=== PATIENT | female | born 1965 | race Caucasian/White ===

== ENCOUNTER 2021-10-04 15:05 | Emergency (ER) | payer BC, SELFPAY ==
[2021-10-04 15:15] VITALS: BP 150/87; PULSE 76; RESP 21; TEMP 36.1; O2SAT 98
--- NOTE | 2021-10-04 15:28 | ED.URI ---
HPI - URI/Sore Throat General Chief Complaint: Upper Respiratory Infection Stated Complaint: Congestion Source: patient and RN notes reviewed Mode of arrival: ambulatory Limitations: no limitations History of Present Illness HPI Narrative: 56-year-old female presented for complaint of mild sinus congestion, dry cough, and fatigue. She endorses her was sick with similar symptoms a week ago and was treated with antibiotics, steroid, inhaler etc. She states she has family coming in and is concerned she will infect them. She took Tylenol cough and cold medicine and 2 puffs of an inhaler that she had from a year ago. She denies shortness of breath, wheezing, nausea, vomiting, diarrhea, fevers or chills. She is vaccinated and boosted for COVID and flu. MD elicited complaint: cough Related Data Allergies Allergy/AdvReac Type Severity Reaction Status Date / Time No Known Allergies Allergy Verified 08/17/16 20:54 Review of Systems Review of Systems: CONSTITUTIONAL: Denies malaise, chills, sweats, fever EYES: Denies visual changes, redness, or discharge ENT: Reports rhinorrhea, congestion, Denies sinus pain, otalgia, sore throat CARDIOVASCULAR: Denies chest pain, palpitations RESPIRATORY: Reports cough GASTROINTESTINAL: Denies abdominal pain MUSCULOSKELETAL: Denies myalgia NEUROLOGIC: Endorses headache Exam Narrative: GENERAL: Ill-appearing, nontoxic HEAD: Normocephalic EYES: conjunctivae clear ENT: Mucous membranes moist. TM pearly moss with dull light reflex bilaterally; no tragal tenderness. Oropharynx erythematous without lesions or exudate, no drooling, no hoarseness, no trismus, uvula midline. NECK: Supple. No lymphadenopathy CHEST: Clear to auscultation, breath sounds equal. No respiratory distress, speaks in full sentences. HEART: Regular rate and rhythm. No murmur heard. SKIN: Warm, dry, no rash. NEURO: Alert and oriented x3. PSYCH: Normal mood and affect Course Course Emergency Course: Patient is aware of diagnosis, understands and agrees to treatment plan. Anticipatory guidance given. Patient agrees to follow-up as directed and is aware of reasons to seek care at the emergency department. Portions of this record may have been created with voice recognition software Level of Care: Express Care Visit Vital Signs Vital signs: Vital Signs Temperature 96.9 F L 10/04/21 15:15 Pulse Rate 76 10/04/21 15:15 Respiratory Rate 21 H 10/04/21 15:15 Blood Pressure 150/87 H 10/04/21 15:15 Pulse Oximetry 98 10/04/21 15:15 Oxygen Delivery Room Air 10/04/21 15:15 Temperature 96.9 F L 10/04/21 15:15 Pulse Rate 76 10/04/21 15:15 Respiratory Rate 21 H 10/04/21 15:15 Blood Pressure 150/87 H 10/04/21 15:15 Pulse Oximetry 98 10/04/21 15:15 Oxygen Delivery Room Air 10/04/21 15:15 reviewed MDM - URI/Sore Throat MDM Narrative Medical decision making narrative: Supportive treatments advised, if sx persist or worsen she will have abx Rx if she will not be able to reach her PCP timely. New Rx albuterol inhaler provided. She is appropriate for outpatient treatment and follow-up with her PCP. Verbalizes understanding. Differential Diagnosis Differential diagnosis: Likely upper respiratory infection, sinusitis, viral infection and bronchitis Discharge Plan Discharge Clinical Impression: Bronchitis Patient Disposition: Home, Self-Care Condition: Stable Instructions: Antibiotic Form, Acute Bronchitis (ED) Additional Instructions: Recommend Flonase spray and Zyrtec (or Claritin/Sugey)For sinus congestion Take the cough medicine with codeine at night benzonatate as needed for cough inhaler as needed for shortness of breath/wheezing Tylenol 1000mg every 8 hours as needed for pain/fever Symptomatic treatment includes: rest, fluids, and increase humidity of the air at home. The antibiotic is available should your symptoms worsen/persist and you develop fever and shortness
== END 2021-10-04 15:47 | disposition home or self-care (01) ==
PROVIDERS: Emergency Provider Nurse Practitioner Family; PCP Nurse Practitioner Family
DX: J40 Bronchitis, not specified as acute or chronic (principal); I10 Essential (primary) hypertension
CPT/HCPCS: 99213; G0463

== ENCOUNTER 2023-02-08 08:49 | Emergency (ER) | payer BC, SELFPAY ==
[2023-02-08 09:03] VITALS: BP 134/79; PULSE 79; RESP 18; TEMP 36.5; O2SAT 100
--- NOTE | 2023-02-08 09:11 | ED.URI ---
HPI - URI/Sore Throat General Chief Complaint: Upper Respiratory Infection Stated Complaint: cough,headache,chest congestion Time Seen by Provider: 02/08/23 09:11 Source: patient, RN notes reviewed and old records reviewed Mode of arrival: ambulatory Limitations: no limitations History of Present Illness HPI Narrative: 57-year-old female presents to the [facility] with complaints of cough, headache, chest congestion sinus pressure for 10 days. States that she felt like she was wheezing yesterday. Has history of anxiety, ADHD. Takes medications for both Denies fevers Has taken Tylenol Severe cold and flu Related Data Home Medications Medication Instructions Recorded Confirmed bupropion HCl 300 mg 24 hr tablet, 300 mg PO DIRECTED 02/08/23 02/08/23 extended release buspirone 30 mg tablet 30 mg DIRECTED 02/08/23 02/08/23 dextroamphetamine-amphetamine 30 30 mg DIRECTED 02/08/23 02/08/23 mg tablet Allergies Allergy/AdvReac Type Severity Reaction Status Date / Time No Known Allergies Allergy Verified 08/17/16 20:54 Review of Systems Review of Systems: All systems reviewed & are unremarkable except as noted in HPI and below Constitutional: Constitutional: Reports as per HPI Eyes: Eyes: Reports no additional eye complaints ENT: Reports as per HPI Cardiovascular: Cardiovascular: Reports no additional cardiovascular complaints, Denies chest pain and Denies dyspnea Respiratory: Respiratory: Reports as per HPI, Reports chest congestion, Reports cough, Denies dyspnea and Reports wheezing Gastrointestinal: Gastrointestinal: Reports no additional gastrointestinal complaints, Denies abdominal pain, Denies nausea and Denies vomiting Musculoskeletal: Musculoskeletal: Reports no additional musculoskeletal complaints Integumentary/Breasts: Skin/Breast: Reports system reviewed and no additional complaints, except as docu Neurologic: Reports system reviewed and no additional complaints, except as documented Psychiatric: Psychiatric: Reports no additional psychiatric complaints Allergic/Immunologic: Allergic/Immunologic: Reports no additional allergic/immunologic complaints [facility] Surgical History Surgical History (Updated 02/08/23 @ 13:48 by Zara Schrader APRN) History of shoulder surgery Right History of surgical procedure on eye proper using laser Social History Social History (Updated 02/08/23 @ 13:48 by Zara Schrader APRN) Gender identity (if verbalized by the patient): Female Comments At the time of my signature, I reviewed and agree with the nursing past medical, surgical, social, and family history. There is no relevant family history pertinent to the patient complaint. Exam Const: General: cooperative, healthy appearing, comfortable, no acute distress, well developed, alert and well nourished Nutritional Appearance: well nourished and obese Orientation/consciousness: patient oriented x3 Limitations: no limitations HENMT: Head: normal to inspection Ears: hearing grossly normal bilaterally, external ears normal, TM's normal bilaterally and EAC's normal Face/Nose/Sinus: Normal external nose present, Normal nares present, Normal nasal mucous membranes and turbinates present, No nasal discharge present, normal facial exam and face symmetric Face and sinus: normal facial exam, sinuses nontender and face symmetric Mouth: Yes Normal oral and palatal mucosa present, Yes lip normal, Yes tongue normal and Yes moist mucous membranes Throat: posterior oropharynx normal, tonsils normal, uvula midline and postnasal drainage Eyes: General: appearance normal, both eyes and all related structures Alignment and Position: alignment normal Periorbital: periorbital findings normal Pupils: Equal, round and reactive pupils present EOM: EOMs intact bilaterally Neck: Neck: normal visual inspection, full ROM, no lymphadenopathy and no meningeal signs Chest: Chest palpation & inspection: normal inspection o
== END 2023-02-08 09:29 | disposition home or self-care (01) ==
PROVIDERS: Emergency Provider Nurse Practitioner; PCP Nurse Practitioner Family
DX: J40 Bronchitis, not specified as acute or chronic (principal); J01.40 Acute pansinusitis, unspecified; Z79.899 Other long term (current) drug therapy
CPT/HCPCS: 99213; G0463

== ENCOUNTER 2023-04-25 09:10 | Emergency (ER) | payer BC, SELFPAY ==
[2023-04-25 09:26] VITALS: BP 138/94; PULSE 87; RESP 16; TEMP 37.1; O2SAT 98
--- NOTE | 2023-04-25 09:34 | ED.URI ---
HPI - URI/Sore Throat General Chief Complaint: Upper Respiratory Infection Stated Complaint: fever,chills,ears/throat hurts,cough Time Seen by Provider: 04/25/23 10:05 Source: patient and RN notes reviewed Mode of arrival: ambulatory Limitations: no limitations History of Present Illness HPI Narrative: 58-year-old female presents with concern for 3 day history of fever, chills, ear pain, sore throat, cough. She reports the bladder office have been sick. She denies shortness of breath, nausea, vomiting, diarrhea MD elicited complaint: cough and sore throat Related Data Home Medications Medication Instructions Recorded Confirmed bupropion HCl 300 mg 24 hr tablet, 300 mg PO DIRECTED 02/08/23 04/25/23 extended release buspirone 30 mg tablet 30 mg DIRECTED 02/08/23 04/25/23 dextroamphetamine-amphetamine 30 30 mg DIRECTED 02/08/23 04/25/23 mg tablet Allergies Allergy/AdvReac Type Severity Reaction Status Date / Time No Known Allergies Allergy Verified 04/25/23 09:50 Review of Systems Review of Systems: CONSTITUTIONAL: Reports malaise, chills, fever. EYES: Denies visual changes, redness, or discharge. ENT: Reports otalgia and sore throat. CARDIOVASCULAR: Denies chest pain, palpitations, or edema. RESPIRATORY: Reports cough. Denies dyspnea. GASTROINTESTINAL: Denies abdominal pain, nausea, vomiting, diarrhea SKIN: Denies rash or itching. MUSCULOSKELETAL: Reports myalgia. NEUROLOGIC: Reports headache. All systems reviewed & are unremarkable except as noted in HPI and below PMFSH Surgical History Surgical History (Updated 02/08/23 @ 13:48 by Zara Schrader APRN) History of shoulder surgery Right History of surgical procedure on eye proper using laser Social History Social History (Updated 02/08/23 @ 13:48 by Zara Schrader APRN) Gender identity (if verbalized by the patient): Female Comments At time of signature, agree with nursing past medical, surgical, social and family history. There is no relevant family history pertinent to the presenting complaint Exam Narrative: GENERAL: Nontoxic-appearing, well-nourished, and in no acute distress. HEAD: Normocephalic EYES: PERRLA, conjunctivae clear ENT: Nares clear. Mucous membranes moist. TM pearly moss with dull light reflex bilaterally; no tragal tenderness. Oropharynx not erythematous without lesions. Tonsils not enlarged and without exudate, no drooling, no hoarseness, no trismus, uvula midline. NECK: Supple. No lymphadenopathy CHEST: Clear to auscultation, breath sounds equal. No wheezing, rhonchi, rales, or stridor. No respiratory distress, speaks in full sentences. HEART: Regular rate and rhythm. No murmur heard. SKIN: Warm, dry, no rash. NEURO: Alert and oriented x3. PSYCH: Normal mood and affect Course Course Emergency Course: Patient is aware of diagnosis, understands and agrees to treatment plan. Anticipatory guidance given. Patient agrees to follow-up as directed and is aware of reasons to seek care at the emergency department. Portions of this record may have been created with voice recognition software Level of Care: Express Care Visit Vital Signs Vital signs: Vital Signs Temperature 98.7 F 04/25/23 09:26 Pulse Rate 87 04/25/23 09:26 Respiratory Rate 16 04/25/23 09:26 Blood Pressure 138/94 H 04/25/23 09:26 Pulse Oximetry 98 04/25/23 09:26 Oxygen Delivery Room Air 04/25/23 09:26 Temperature 98.7 F 04/25/23 09:26 Pulse Rate 87 04/25/23 09:26 Respiratory Rate 16 04/25/23 09:26 Blood Pressure 138/94 H 04/25/23 09:26 Pulse Oximetry 98 04/25/23 09:26 Oxygen Delivery Room Air 04/25/23 09:26 Reviewed. MDM - URI/Sore Throat MDM Narrative Medical decision making narrative: Differential diagnosis considered: Davis virus, strep pharyngitis, allergic rhinitis, upper respiratory tract infection, sinusitis, rhinosinusitis, nasopharyngitis. viral pharyngitis, otitis media, o
== END 2023-04-25 10:23 | disposition home or self-care (01) ==
PROVIDERS: Emergency Provider Nurse Practitioner; PCP Nurse Practitioner Family
DX: U07.1 COVID-19 (principal); I10 Essential (primary) hypertension; F41.9 Anxiety disorder, unspecified; F32.A Depression, unspecified; F90.9 Attention-deficit hyperactivity disorder, unspecified type
CPT/HCPCS: 87426; 87804; 99213; C9803; G0463

== ENCOUNTER 2023-05-23 17:43 | Emergency (ER) | payer BC, SELFPAY ==
--- NOTE | ~2023-05-23 | XR_ITS ---
Left Knee Technique: AP, lateral, and sunrise views were obtained. Clinical History: Pain Findings: There is a large, minimally displaced avulsion fracture of the posterior tibial spine, prob ably involving the posterior cruciate ligament insertion. There is degenerative spurring at the inter condylar notch, medial joint line, and patella.. Small joint effusion is seen. Impression: Large, minimally displaced avulsion fracture of the posterior tibial spine, probably involving the po sterior cruciate ligament insertion. Mild degenerative change, as above. Reviewed, dictated and finalized at location M. ENT RELATIONS COORDINATOR Impression: Large, minimally displaced avulsion fracture of the posterior tibial spine, pro bably involving the posterior cruciate ligament insertion. Mild degenerative change, as above.
--- NOTE | ~2023-05-23 | CT_ITS ---
Noncontrast CT scan of the left knee CLINICAL HISTORY: Fracture TECHNIQUE: Axial noncontrast imaging of the left knee was performed. Sagittal and coronal reformatted images were constructed. Dose reduction technique was used on this scan by utilizing automated expos ure control and iterative reconstruction technique. The dose-length product (DLP) was 419.67 mGy-cm. Findings: There is a comminuted, minimally displaced fracture involving the posterior tibial spine re gion, involving the posterior cruciate ligament insertion. Fracture lines extend to the anterior tibi al spine as well, and involvement of the anterior cruciate ligament insertion cannot be completely ex cluded. There is moderate tricompartmental degenerative spurring. Small joint effusion present. [id number] rate Nichols's cyst present. Musculature about the knee is grossly intact. Subcutaneous soft tissues ar e otherwise unremarkable. IMPRESSION: Comminuted, minimally displaced fracture involving the posterior tibial spine, and probably extending to the anterior tibial spine as well. Fracture involves the posterior cruciate ligament insertion, a nd possibly the anterior cruciate ligament insertion. Moderate tricompartmental degenerative spurring. Small joint effusion and small to moderate Nichols's cyst. Reviewed, dictated and finalized at location . MAKER IMPRESSION: Comminuted, minimally displaced fracture involving the posterior tibial spine, and probably extending to the anterior tibial spine as well. Fracture involves the posterior cruciate ligament insertion, and possibly the anterior cruciate l igament insertion. Moderate tricompartmental degenerative spurring. Small joint effusion and small to moderate Nichols's cyst.
[2023-05-23 17:48] VITALS: BP 120/88; PULSE 93; RESP 20; TEMP 36.7; O2SAT 96
--- NOTE | 2023-05-23 18:44 | ED.LOWEXIN ---
HPI - Extremity Injury (Lower) General Chief Complaint: Extremity Injury, Lower Stated Complaint: left knee injury Time Seen by Provider: 05/23/23 17:48 History of Present Illness HPI Narrative: 58-year-old female presents here after tripping and falling landing heavily on her left knee, she states that she felt something give and has severe pain. pain radiates all way down to the foot. Related Data Home Medications Medication Instructions Recorded Confirmed bupropion HCl 300 mg 24 hr tablet, 300 mg PO DIRECTED 02/08/23 04/25/23 extended release buspirone 30 mg tablet 30 mg DIRECTED 02/08/23 04/25/23 dextroamphetamine-amphetamine 30 30 mg DIRECTED 02/08/23 04/25/23 mg tablet Allergies Allergy/AdvReac Type Severity Reaction Status Date / Time No Known Allergies Allergy Verified 05/23/23 17:51 Review of Systems Review of Systems: CONST: No fever. HEENT: No sore throat C/V: No chest pain RESP: No cough GI: No abdominal pain : No dysuria. M/S: left knee pain SKIN: bruising left knee NEURO: slight paresthesias down the leg PSYCH: [No depression] [facility] Surgical History Surgical History (Updated 02/08/23 @ 13:48 by Zara Schrader APRN) History of shoulder surgery Right History of surgical procedure on eye proper using laser Social History Social History (Updated 02/08/23 @ 13:48 by Zara Schrader APRN) Gender identity (if verbalized by the patient): Female Exam Narrative: EXAMINATION OF ORGAN SYSTEMS/BODY AREAS: Constitutional: Vital signs per nursing GENERAL: appears uncomfortable and in pain HEAD: Normal with no signs of head trauma. EYES: EOMI, conjunctiva normal ENT: Hearing grossly intact LUNGS: Nonlabored breathing. HEART: [Regular rate and rhythm] ABD: [Soft], [nontender to palpation] EXT: swelling left knee with tenderness SKIN: swelling/ bruising left knee NEURO: [Alert and oriented x 3. sensation intact left lower leg and able to wiggle toes but feels weirder/less than right] PSYCH: Normal affect Course Vital Signs Vital signs: Vital Signs Temperature 98.1 F 05/23/23 17:48 Pulse Rate 93 05/23/23 17:48 Respiratory Rate 20 05/23/23 17:48 Blood Pressure 120/88 05/23/23 17:48 Pulse Oximetry 96 05/23/23 17:48 Oxygen Delivery Room Air 05/23/23 17:48 Temperature 98.1 F 05/23/23 17:48 Pulse Rate 88 05/23/23 19:12 Respiratory Rate 20 05/23/23 17:48 Blood Pressure 129/86 05/23/23 19:12 Pulse Oximetry 97 05/23/23 19:12 Oxygen Delivery Room Air 05/23/23 17:48 Procedures Joint Aspiration/Injection Joint Asp./Inject. 1: Joint Aspiration Date: 05/23/23 Joint Aspiration Time: 20:03 Side of body: left Joint Aspirated: knee Ultrasound Guidance: No Skin Prep: other (chlorhex, alcohol, and sterile prep/drape) Local Anesthetic: lidocaine 1% Amount of anesthesia used (mL): 5 Needle Size Used: 18G Fluid Obtained: bloody Total fluid obtained (mL): 35 Patient Tolerated Procedure: well and no complications MDM - Extremity Injury (Lower) MDM Narrative Medical decision making narrative: 58-year-old female presenting here after mechanical fall with knee injury, she has good pulses left DP, there is obvious swelling/ tenderness to the left knee, with some paresthesias down the lateral leg/ foot, x-ray on my interpretation does show an acute fracture, confirmed on CT, I discussed this with ortho Dr Paul who recommended joint aspiration here and follow-up in the clinic, with knee immobilizer. Knee aspiration performed, 35 cc bloody fluid, bandaid placed, TONI wrap placed. her friend will stay with her tonight to take care of her. I do feel she is stable for discharge at this time and she is comfortable with plan, follow-up information provided as well as strict return precautions. Discharge Plan Discharge Clinical Impression: Acute
[2023-05-23] MEDS: LORazepam (*CRX) 0.5 MG TABLET PO (19:10)
[2023-05-23] MEDS: MORPHINE SULFATE (*CRX) 4 MG/ML INJ IM (19:10)
[2023-05-23 19:12] VITALS: BP 129/86; PULSE 88; O2SAT 97
[2023-05-23 20:27] VITALS: BP 145/96; PULSE 93; RESP 17; O2SAT 96
== END 2023-05-23 20:27 | disposition home or self-care (01) ==
PROVIDERS: Emergency Provider Emergency Medicine; PCP Nurse Practitioner Family
DX: M23.92 Unspecified internal derangement of left knee (principal); S82.112A Displaced fracture of left tibial spine, initial encounter for closed fracture; M25.062 Hemarthrosis, left knee; M71.22 Synovial cyst of popliteal space [Baker], left knee; W01.0XXA Fall on same level from slipping, tripping and stumbling without subsequent striking against object, initial encounter
CPT/HCPCS: 20610; 73562; 73700; 96372; 99283; 99284; A9270; J2270

== ENCOUNTER 2024-06-14 08:27 | Outpatient (CLI) | payer BC, SELFPAY ==
--- NOTE | ~2024-06-14 | MM_ITS ---
EXAMINATION: MM screening abisai BI w ernesto HISTORY: Screening TECHNIQUE: Craniocaudal and mediolateral oblique 3-D tomosynthesis images were obtained and synthetic 2-D images were generated. CAD analysis was submitted and interpreted. COMPARISON: Comparison to multiple prior studies sequentially, with oldest reviewed study dated 03/11. BREAST PARENCHYMAL COMPOSITION: Not dense: There are scattered areas of fibroglandular density. FINDINGS: There is no evidence of suspicious mass, calcification, or architectural distortion to sugg est malignancy in either breast. There has been no suspicious interval change. IMPRESSION: 1. No mammographic evidence of malignancy. 2. Recommend routine screening mammography in one year. BI-RADS Category 1: Negative Reviewed, dictated and finalized at location [] ET RISK ANALYST
--- OUTSIDE RECORDS SUMMARY | 2024-06-14 08:34 | XMS_ITS | Data Portability ---
Author Organization [facility], [employer] Address [address] [place] [address] Assessment Encounter Date Assessment Date Assessment LastModified by Organization Details LastModified Time 05/27/2023 05/27/2023 New patient presented for admission to the practice. Studies ordered as below. Discussed plan with patient and family, who expressed understanding . Follow up as noted below. [email or web address] Not available 05/27/2023 15:52:55 08/26/2023 08/26/2023 Patient presented for follow up. Studies ordered as below. Discussed plan with patient/careg iver, who expressed understanding . Follow up as noted below. New patient presented for admission to the practice. Studies ordered as below. Discussed plan with patient and family, who expressed understanding . Follow up as noted below. [email or web address] Not available 08/26/2023 16:25:04 03/15/2024 03/15/2024 Patient presented for follow up. Studies ordered as below. Discussed plan with patient/careg iver, who expressed understanding . Follow up as noted below. [email or web address] Not available 03/15/2024 16:59:41 Plan of Treatment Reminders Order Date Submit Date Provider Last Modified By Organization Details Last Modified Time Details Appointments ESTABLISH ED PATIENT 15 2024 03:45P Victorino Marshall MD Not available Not available Not available Lab hepatitis C virus Ab, serum 2023 024 NI [facility], [address], [place], [address], 05/27/2023 16:24:52 drug screen, urine 2023 024 NI [facility], [address], [place], [address], 05/27/2023 16:24:55 C-peptide , serum 2023 024 [email or web address], [address], [place], [address], 05/27/2023 16:24:51 HbA1c (hemoglob in A1c), blood 2023 024 [employer] [facility], [address], [address], [place], [address], 05/27/2023 16:24:51 glucose tolerance test, post-75G, 3 specimens 2023 024 [employer] [facility], [address], [address], [place], [address], 05/27/2023 16:24:48 lipid panel w/ direct LDL, serum 2023 024 [employer] [facility], [address], [address], [place], [address], 05/27/2023 16:24:45 CMP, serum or plasma 2023 024 [employer] [facility], [address], [address], [place], [address], 05/27/2023 16:24:52 CBC w/ auto diff 2023 024 [facility], [address], [address], [place], [address], 05/27/2023 16:24:54 TSH + free T4, serum 2023 024 [employer] [facility], [address], [address], [place], [address], 05/27/2023 16:24:47 erythrocy te sedimenta tion rate by westergre n method 2023 024 [email or web address], [address], [place], [address], 05/27/2023 16:24:53 ESR (erythroc yte sedimenta tion rate), blood 2023 024 [email or web address], [address], [place], [address], 05/27/2023 16:24:50 hepatitis C virus Ab, serum 2023 024 [email or web address], [address], [place], [address], 08/26/2023 16:37:06 HIV (1+2) Ab screen, serum 2023 024 [email or web address], [address], [place], [address], 08/26/2023 16:37:06 lipid panel w/ direct LDL, serum 2023 024 [email or web address], [address], [place], [address], 08/26/2023 16:37:05 CMP, serum or plasma 2023 024 [facility], [address], [place], [address], 09/05/2023 12:03:06 CBC w/ auto diff 2023 024 [employer] [facility], [address], [place], [address], 09/05/2023 12:03:09 drug screen, urine 2023 024 [email or web address], [address], [place], [address], 08/26/2023 16:37:06 C-peptide , serum 2023 024 [facility], [address], [place], [address], 08/26/2023 16:37:06 HbA1c (hemoglob in A1c), blood 2023 024 [facility], [address], [place], [address], 09/05/2023 12:03:04 glucose tolerance test, post-75G, 3 specimens - 2 Hours 2023 024 [facility], [address], [place], [address], 08/26/2023 16:37:05 TSH + free T4, serum 2023 024 [facility], [address], [place], [address], 08/26/2023 16:37:06 ESR (erythroc yte sedimenta tion rate), blood 2023 024 [facility], [address], [place], [address], 09/05/2023 12:03:10 CMP, serum or plasma 2023 024 [facility], [address], [place], [address], 12/07/2023 18:56:08 lipid panel w/ direct LDL, serum 2023 024 [facility], [address], [place], [address], 03/15/2024 17:40:53 TSH, serum or plasma 2023 024 [facility], [address], [place], [address], 03/15/2024 17:40:55 CMP, serum or plasma 2023 024 [email or web address], [address], [place], [address], 04/23/2024 10:35:42 CBC w/ auto diff 2023 024 [facility], [address], [place], [address], 04/23/2024 10:35:40 drug screen, urine 2023 024 [email or web address], [address], [place], [address], 03/15/2024 17:40:53 C-peptide , serum 2023 024 [facility], [address], [place], [address], 04/23/2024 10:35:45 HbA1c (hemoglob in A1c), blood 2023 024 [email or web address], [address], [place], [address], 04/23/2024 10:35:43 Referral gynecolog ist referral 2023 024 GALE José, [address], [place], [address], Ph [phone] 05/21/2024 04:02:10 psychiatr ist referral 2023 024 GALE Davis, [address], [place], [address], 05/21/2024 04:02:11 orthopedi c surgeon referral 2023 024 GALE Paul MD, [address], [place], [address], 05/21/2024 04:02:10 gastroent erologist referral 2023 024 GALE Metcalf MD, [address], [place], [address], 05/21/2024 04:02:11 gynecolog ist referral 2023 024 ATHTERRY José, [address], [place], [address], Ph [phone] 08/26/2023 16:50:21 psychiatr ist referral 2023 024 [email or web address] Keshawn Rodriguez MD, [address], [place], [address], 08/26/2023 16:45:44 gastroent erologist referral 2023 024 GALE Metcalf MD, [address], [place], [address], 09/11/2023 15:11:22 gynecolog ist referral 2023 024 [email or web address] Shilpa José, [address], [place], [address], Ph [phone] 12/07/2023 17:31:[address] referral 2023 024 [facility], [address], [place], [address], 03/15/2024 17:53:02 gynecolog ist referral 2023 024 SHILPI José, [address], [place], [address], Ph [phone] 03/15/2024 17:54:37 Procedures None recorded. Surgeries None recorded. Imaging MAMMO, screening , digital, bilateral 2023 024 [facility], [address], [place], [address], 06/03/2023 07:17:18 electroca rdiogram 2023 024 [facility], [address], [place], [address], 05/27/2023 18:02:38 home sleep study 2023 024 [facility], [address], [place], [address], 06/21/2023 10:30:46 MAMMO, screening , digital, bilateral [address] [facility], [address], [place], [address], 09/02/2023 04:13:13 MAMMO, screening , digital, bilateral [address] [facility], [address], [place], [address], 12/14/2023 04:09:42 MAMMO, screening , digital, bilateral [address] [facility], [address], [place], [address], 03/22/2024 04:13:55 Medication Orders triamcino lone acetonide 0.1 % topical cream 2023 024 [facility]2510, [address] [place], [address], 05/27/2023 16:23:37 sumatript an 50 mg tablet 2023 024 [facility] #2510, [address] [place], [address], 05/27/2023 16:23:36 sumatript an 50 mg tablet 2023 024 [facility]acy #2510, [address] [place], [address], 08/26/2023 16:36:07 bupropion HCl XL 300 mg 24 hr tablet, extended release 2023 [facility] [address] [place] [address], [address], 03/15/2024 17:27:11 dextroamp hetamine- amphetami ne 30 mg tablet 2023 024 [facility], [address] [place] [address], [address], 12/07/2023 17:26:55 Mounjaro 2.5 mg/0.5 mL subcutane ous pen injector 2023 [facility], [address] [place] [address], [address], 01/07/2024 15:43:57 Auvelity 45 mg-105 mg tablet, extended release 2023 024 [facility], [address] [place] [address], [address], 03/15/2024 17:40:09 amlodipin e 2.5 mg tablet 2023 024 [facility], [address] [place] [address], [address], 03/15/2024 17:40:10 topiramat e 25 mg tablet 2023 024 [facility] [address] [place] [address], [address], 04/07/2024 08:36:32 Patient TargetsNo targets recorded. Patient Instructions Encounter Date Encounter Id Patient Instructions Last Modified By Organization Details Last Modified Time 05/27/2023 [id number] mammogram: about this test [facility] Not available 05/27/2023 16:23:27 sleep apnea: car e instructions [facility] Not available 05/27/2023 16:23:28 attention defici t hyperactivity disorder (ADHD) in adults: care instructions [facility] Not available 05/27/2023 16:23:28 broken lower leg : care instructions mshenouda Not available 05/27/2023 16:23:29 snoring: care instructions mshenouda Not available 05/27/2023 16:23:30 body mass index: care instructions mshenouda Not available 05/27/2023 16:23:28 learning about healthy weight mshenouda Not available 05/27/2023 16:23:29 living will mshenouda Not available 05/10 16:17:22 08/26/2023 [id number] mammogram: about this test mshenouda Not available 08/26/2023 16:36:00 sleep apnea: car e instructions mshenouda Not available 08/26/2023 16:36:01 attention defici t hyperactivity disorder (ADHD) in adults: care instructions mshenouda Not available 08/26/2023 16:36:00 broken lower leg : care instructions mshenouda Not available 08/26/2023 16:36:01 body mass index: care instructions mshenouda Not available 08/26/2023 16:36:00 learning about healthy weight mshenouda Not available 08/26/2023 16:35:59 12/07/2023 [id number] mammogram: about this test mshenouda Not available 12/07/2023 17:26:51 low cholesterol diet mshenouda Not available 12/07/2023 17:26:51 body mass index: care instructions mshenouda Not available 12/07/2023 17:26:51 learning about healthy weight mshenouda Not available 12/07/2023 17:26:51 body mass index: care instructions mshenouda Not available 12/07/2023 17:26:51 learning about healthy weight mshenouda Not available 12/07/2023 17:26:51 03/15/2024 [id number] mammogram: about this test mshenouda Not available 03/15/2024 17:40:03 Preventing Depression From Coming Back: Care Instructions mshenouda Not available 03/15/2024 17:40:02 body mass index: care instructions mshenouda Not available 03/15/2024 17:40:03 learning about healthy weight mshenouda Not available 03/15/2024 17:40:03 Reason for Referral Orthopedic Surgeon Referral for Fracture of tibia Referring Physician: Jose Armando [facility], Encounter Date: 05/27/2023 Rotary Filter Operator Referral for Sc reening for malignant neoplasm of cervix Referring Physician: Jose Armando [facility], Encounter Date: 05/27/2023 Rag Shredder Referral for Screening for malignant neoplasm of colon Referring Physician: Jose Armando [facility], Encounter Date: 05/27/2023 Psychiatrist 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, predominantly inattentive type Referring Physician: Jose Armando [facility], Encounter Date: 05/27/2023 Rotary Filter Operator Referral for Sc reening for malignant neoplasm of cervix Referring Physician: Jose Armando [facility], Encounter Date: 08/26/2023 Rag Shredder Referral for Screening for malignant neoplasm of colon Referring Physician: Jose Armando [facility], Encounter Date: 08/26/2023 Psychiatrist 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, predominantly inattentive type Referring Physician: Jose Armando [facility], Encounter Date: 08/26/2023 Rotary Filter Operator Referral for Sc reening for malignant neoplasm of cervix Referring Physician: Jose Armando [facility], Encounter Date: 12/07/2023 Llama Farmer Referral for Luis ign hypertension Referring Physician: Jose Armando [facility], Encounter Date: 03/15/2024 Rotary Filter Operator Referral for Sc reening for malignant neoplasm of cervix Referring Physician: Jose Armando [facility], Encounter Date: 03/15/2024 Results Created Date Observation Date Name Description Value Unit Range Abnormal Flag Note LastModifiedBy Organization Detail LastModifiedTime 08/26/19 24 08/26/2023 COMPR EHENS PER DRUG PROFI LE A, URINE CONFI RMATI ON amphetamine DETECT ED 250 abnormal Not Available [facility] [address] [facility] [address], [place], [address], 09/05/2023 12:03:03 08/26/19 24 08/26/2023 COMPR EHENS PER DRUG PROFI LE A, URINE CONFI RMATI ON methamphetam ine NOT DETECT ED 250 Not Available [facility] [address] [facility] [address], [place], [address], 09/05/2023 12:03:03 08/26/19 24 08/26/2023 COMPR EHENS PER DRUG PROFI LE A, URINE CONFI RMATI ON mda NOT DETECT ED 100 Not Available [facility] [address] [facility] [address], [place], [address], 09/05/2023 12:03:03 08/26/19 24 08/26/2023 COMPR EHENS PER DRUG PROFI LE A, URINE CONFI RMATI ON MDMA NOT DETECT ED 100 Not Available [facility] [address] [facility] [address], [place], [address], 09/05/2023 12:03:03 08/26/19 24 08/26/2023 COMPR EHENS PER DRUG PROFI LE A, URINE CONFI RMATI ON mdea NOT DETECT ED 100 Not Available [facility] [address] [facility] [address], [place], [address], 09/05/2023 12:03:03 08/26/19 24 08/26/2023 COMPR EHENS PER DRUG PROFI LE A, URINE CONFI RMATI ON 7-aminoclona zepam NOT DETECT ED 100 Not Available [facility] [address] [facility] [address], [place], [address], 09/05/2023 12:03:03 08/26/19 24 08/26/2023 COMPR EHENS PER DRUG PROFI LE A, URINE CONFI RMATI ON alprazolam NOT DETECT ED 100 Not Available [facility] [address] [facility] [address], [place], [address], 09/05/2023 12:03:03 08/26/19 24 08/26/2023 COMPR EHENS PER DRUG PROFI LE A, URINE CONFI RMATI ON hydroxyalpra zolam NOT DETECT ED 100 Not Available [facility] [address] [facility] [address], [place], [address], 09/05/2023 12:03:03 08/26/19 24 08/26/2023 COMPR EHENS PER DRUG PROFI LE A, URINE CONFI RMATI ON nordiazepam NOT DETECT ED 100 Not Available [facility] [address] [place] [address] [address], [place], [address], 09/05/2023 12:03:03 08/26/19 24 08/26/2023 COMPR EHENS PRE DRUG PROFI LE A, URINE CONFI RMATI ON temazepam NOT DETECT ED 100 Not Available [facility] [address] [place] [address] [address], [place], [address], 09/05/2023 12:03:03 08/26/19 24 08/26/2023 COMPR EHENS PER DRUG PROFI LE A, URINE CONFI RMATI ON lorazepam NOT DETECT ED 100 Not Available [facility] [address] [place] [address] [address], [place], [address], 09/05/2023 12:03:03 08/26/19 24 08/26/2023 COMPR EHENS PER DRUG PROFI LE A, URINE CONFI RMATI ON benzoylecgon ine NOT DETECT ED 200 Not Available [facility] [address] [place] [address] [address], [place], [address], 09/05/2023 12:03:03 08/26/19 24 08/26/2023 COMPR EHENS PER DRUG PROFI LE A, URINE CONFI RMATI ON 6-monoacetyl morphine NOT DETECT ED 10 Not Available [facility] [address] [place] [address] [address], [place], [address], 09/05/2023 12:03:03 08/26/19 24 08/26/2023 COMPR EHENS PER DRUG PROFI LE A, URINE CONFI RMATI ON amitriptylin e NOT DETECT ED 50 Not Available [facility] [address] [facility] [address], [place], [address], 09/05/2023 12:03:03 08/26/19 24 08/26/2023 COMPR EHENS PER DRUG PROFI LE A, URINE CONFI RMATI ON cyclobenzapr ine NOT DETECT ED 50 Not Available [facility] [address] [place] [address] [address], [place], [address], 09/05/2023 12:03:03 08/26/19 24 08/26/2023 COMPR EHENS PER DRUG PROFI LE A, URINE CONFI RMATI ON desipramine NOT DETECT ED 50 Not Available [facility] [address] [facility] [address], [place], [address], 09/05/2023 12:03:03 08/26/19 24 08/26/2023 COMPR EHENS PER DRUG PROFI LE A, URINE CONFI RMATI ON diazepam NOT DETECT ED 100 Not Available [facility] [address] [place] [address] [address], [place], [address], 09/05/2023 12:03:03 08/26/19 24 08/26/2023 COMPR EHENS PER DRUG PROFI LE A, URINE CONFI RMATI ON doxepin NOT DETECT ED 50 Not Available [facility] [address] [place] [address] [address], [place], [address], 09/05/2023 12:03:03 08/26/19 24 08/26/2023 COMPR EHENS PER DRUG PROFI LE A, URINE CONFI RMATI ON imipramine NOT DETECT ED 50 Not Available [facility] [address] [place] [address] [address], [place], [address], 09/05/2023 12:03:03 08/26/19 24 08/26/2023 COMPR EHENS PER DRUG PROFI LE A, URINE CONFI RMATI ON nortriptylin e NOT DETECT ED 100 Not Available [facility] [address] [facility] [address], [place], [address], 09/05/2023 12:03:03 08/26/19 24 08/26/2023 COMPR EHENS PER DRUG PROFI LE A, URINE CONFI RMATI ON ritalinic acid NOT DETECT ED 100 Not Available [facility] [address] [place] [address] [address], [place], [address], 09/05/2023 12:03:03 08/26/19 24 08/26/2023 COMPR EHENS PER DRUG PROFI LE A, URINE CONFI RMATI ON codeine NOT DETECT ED 100 Not Available [facility] [address] [place] [address] [address], [place], [address], 09/05/2023 12:03:03 08/26/19 24 08/26/2023 COMPR EHENS PER DRUG PROFI LE A, URINE CONFI RMATI ON hydrocodone NOT DETECT ED 100 Not Available [facility] [address] [place] [address] [address], [place], [address], 09/05/2023 12:03:03 08/26/19 24 08/26/2023 COMPR EHENS PER DRUG PROFI LE A, URINE CONFI RMATI ON hydromorphon e NOT DETECT ED 100 Not Available [facility] [address] [place] [address] [address], [place], [address], 09/05/2023 12:03:03 08/26/19 24 08/26/2023 COMPR EHENS PER DRUG PROFI LE A, URINE CONFI RMATI ON morphine NOT DETECT ED 100 Not Available [facility] [address] [place] [address] [address], [place], [address], 09/05/2023 12:03:03 08/26/19 24 08/26/2023 COMPR EHENS PER DRUG PROFI LE A, URINE CONFI RMATI ON norhydrocodo ne NOT DETECT ED 100 Not Available [facility] [address] [facility] [address], [place], [address], 09/05/2023 12:03:03 08/26/19 24 08/26/2023 COMPR EHENS PER DRUG PROFI LE A, URINE CONFI RMATI ON noroxycodone NOT DETECT ED 100 Not Available [facility] [address] [facility] [address], [place], [address], 09/05/2023 12:03:03 08/26/19 24 08/26/2023 COMPR EHENS PER DRUG PROFI LE A, URINE CONFI RMATI ON oxycodone NOT DETECT ED 100 Not Available [facility] [address] [facility] [address], [place], [address], 09/05/2023 12:03:03 08/26/19 24 08/26/2023 COMPR EHENS PER DRUG PROFI LE A, URINE CONFI RMATI ON oxymorphone NOT DETECT ED 100 Not Available [facility] [address] [facility] [address], [place], [address], 09/05/2023 12:03:03 08/26/19 24 08/26/2023 COMPR EHENS PER DRUG PROFI LE A, URINE CONFI RMATI ON buprenorphin e NOT DETECT ED 50 Not Available [facility] [address] [facility] [address], [place], [address], 09/05/2023 12:03:03 08/26/19 24 08/26/2023 COMPR EHENS PER DRUG PROFI LE A, URINE CONFI RMATI ON norbuprenorp clinton NOT DETECT ED 100 Not Available [facility] [address] [facility] [address], [place], [address], 09/05/2023 12:03:03 08/26/19 24 08/26/2023 COMPR EHENS PER DRUG PROFI LE A, URINE CONFI RMATI ON fentanyl NOT DETECT ED 10 Not Available [facility] [address] [facility] [address], [place], [address], 09/05/2023 12:03:03 08/26/19 24 08/26/2023 COMPR EHENS PER DRUG PROFI LE A, URINE CONFI RMATI ON norfentanyl NOT DETECT ED 50 Not Available [facility] [address] [facility] [address], [place], [address], 09/05/2023 12:03:03 08/26/19 24 08/26/2023 COMPR EHENS PER DRUG PROFI LE A, URINE CONFI RMATI ON methadone NOT DETECT ED 100 Not Available [facility] [address] [place] [address] [address], [place], [address], 09/05/2023 12:03:03 08/26/19 24 08/26/2023 COMPR EHENS PER DRUG PROFI LE A, URINE CONFI RMATI ON EDDP NOT DETECT ED 50 Not Available [facility] [address] [place] [address] [address], [place], [address], 09/05/2023 12:03:03 08/26/19 24 08/26/2023 COMPR EHENS PER DRUG PROFI LE A, URINE CONFI RMATI ON meperidine NOT DETECT ED 100 Not Available [facility] [address] [place] [address] [address], [place], [address], 09/05/2023 12:03:03 08/26/19 24 08/26/2023 COMPR EHENS PER DRUG PROFI LE A, URINE CONFI RMATI ON normeperidin e NOT DETECT ED 100 Not Available [facility] [address] [place] [address] [address], [place], [address], 09/05/2023 12:03:03 08/26/19 24 08/26/2023 COMPR EHENS PER DRUG PROFI LE A, URINE CONFI RMATI ON tramadol NOT DETECT ED 100 Not Available [facility] [address] [facility] [address], [place], [address], 09/05/2023 12:03:03 08/26/19 24 08/26/2023 COMPR EHENS PER DRUG PROFI LE A, URINE CONFI RMATI ON O-desmethylt ramadol NOT DETECT ED 100 Not Available [facility] [address] [facility] [address], [place], [address], 09/05/2023 12:03:03 08/26/19 24 08/26/2023 COMPR EHENS PER DRUG PROFI LE A, URINE CONFI RMATI ON tapentadol NOT DETECT ED 100 Not Available [facility] [address] [facility] [address], [place], [address], 09/05/2023 12:03:03 08/26/19 24 08/26/2023 COMPR EHENS PER DRUG PROFI LE A, URINE CONFI RMATI ON naloxone NOT DETECT ED 100 Not Available [facility] [address] [facility] [address], [place], [address], 09/05/2023 12:03:03 08/26/19 24 08/26/2023 COMPR EHENS PER DRUG PROFI LE A, URINE CONFI RMATI ON pregabalin NOT DETECT ED 100 Not Available [facility] [address] [facility] [address], [place], [address], 09/05/2023 12:03:03 08/26/19 24 08/26/2023 COMPR EHENS PER DRUG PROFI LE A, URINE CONFI RMATI ON gabapentin NOT DETECT ED 500 Not Available [facility] [address] [facility] [address], [place], [address], 09/05/2023 12:03:03 08/26/19 24 08/26/2023 COMPR EHENS PER DRUG PROFI LE A, URINE CONFI RMATI ON naltrexone NOT DETECT ED 100 Not Available [facility] [address] [facility] [address], [place], [address], 09/05/2023 12:03:03 08/26/19 24 08/26/2023 COMPR EHENS PER DRUG PROFI LE A, URINE CONFI RMATI ON fluoxetine NOT DETECT ED 100 Not Available [facility] [address] [facility] [address], [place], [address], 09/05/2023 12:03:03 08/26/19 24 08/26/2023 COMPR EHENS PER DRUG PROFI LE A, URINE CONFI RMATI ON sertraline NOT DETECT ED 100 Not Available [facility] [address] [facility] [address], [place], [address], 09/05/2023 12:03:03 08/26/19 24 08/26/2023 COMPR EHENS PER DRUG PROFI LE A, URINE CONFI RMATI ON zolpidem NOT DETECT ED 100 Not Available [facility] [address] [facility] [address], [place], [address], 09/05/2023 12:03:03 08/26/19 24 08/26/2023 HEMOG LOBIN A1C hemoglobin A1C 5.8 % 4.8-5. 6 high MANDEEP L RANGE BASED ON KATIE COL 2 (DCCT /NGSP ): Non-D iabet ic: < 5.7% Pre-D iabet es: 5.7 - 6.4% Diabe suresh: => 6.5% GLYCE ELSA CONTR OL: < 7.0% Not Available [facility] [address] [facility] [address], [place], [address], 09/05/2023 12:03:04 08/26/19 24 08/26/2023 HEMOG LOBIN A1C estimated average glucose 120 Not Available [facility] [address] [facility] [address], [place], [address], 09/05/2023 12:03:04 08/26/19 24 08/26/2023 *C-PE PTIDE C-peptide 3.6 NG/mL 1.1-4. 4 NOTE: REFER ENCE RANGE APPLI ES TO FASTI NG SAMPL E ONLY. Not Available [facility] [address] [facility] [address], [place], [address], 09/05/2023 12:03:05 08/26/19 24 08/26/2023 COMPR EHENS PER METAB OLIC PANEL sodium 141 mmol/ L 134-14 4 Not Available [facility] [address] [facility] [address], [place], [address], 09/05/2023 12:03:05 08/26/19 24 08/26/2023 COMPR EHENS PER METAB OLIC PANEL potassium 4.4 mmol/ L 3.5-5. 2 Not Available [facility] [address] [facility] [address], [place], [address], 09/05/2023 12:03:05 08/26/19 24 08/26/2023 COMPR EHENS PER METAB OLIC PANEL chloride 103 mmol/ L 97-108 Not Available [facility] [address] [facility] [address], [place], [address], 09/05/2023 12:03:05 08/26/19 24 08/26/2023 COMPR EHENS PER METAB OLIC PANEL carbon dioxide (co2) 22.0 mmol/ L 18.0-2 9.0 Not Available [facility] [address] [facility] [address], [place], [address], 09/05/2023 12:03:05 08/26/19 24 08/26/2023 COMPR EHENS PER METAB OLIC PANEL glucose 99 mg/dL 65-99 Mandeep l Fasti ng: < 100 mg/dL Impai red Fasti n - 125 mg/dL Diagn ostic of Diabe suresh: => 126 mg/dL Ameri can Diabe suresh [facility] iatio n, 2008 Not Available [facility] [address] [facility] [address], [place], [address], 09/05/2023 12:03:05 08/26/19 24 08/26/2023 COMPR EHENS PER METAB OLIC PANEL urea nitrogen (BUN) 14 mg/dL 6-20 Not Available [facility] [address] [facility] [address] [place], [address], 09/05/2023 12:03:05 08/26/19 24 08/26/2023 COMPR EHENS PER METAB OLIC PANEL creatinine 0.97 mg/dL 0.57-1 .00 Not Available [facility] [address] [facility] [address], [place], [address], 09/05/2023 12:03:05 08/26/19 24 08/26/2023 COMPR EHENS PER METAB OLIC PANEL eGFR for nonafrican AM 59 mL/mi nute/ 1.73_ m2 >59 low Not Available [facility] [address] [facility] [address], [place], [address], 09/05/2023 12:03:05 08/26/19 24 08/26/2023 COMPR EHENS PER METAB OLIC PANEL eGFR for AM 72 mL/mi nute/ 1.73_ m2 >59 MDRD Study Equat ion: The calcu lated GFR is NOT appli cable for pedia tric (< 18 years old) and > 70 year old patie nts and patie nts that are NOT of [place] . Not Available [facility] [address] [facility] [address], [place], [address], 09/05/2023 12:03:05 08/26/19 24 08/26/2023 COMPR EHENS PER METAB OLIC PANEL calcium 10.3 mg/dL 8.7-10 .2 high Not Available [facility] [address] [facility] [address], [place], [address], 09/05/2023 12:03:05 08/26/19 24 08/26/2023 COMPR EHENS PER METAB OLIC PANEL protein, total 7.6 gm/dL 6.4-8. 3 Not Available [facility] [address] [facility] [address], [place], [address], 09/05/2023 12:03:05 08/26/19 24 08/26/2023 COMPR EHENS PER METAB OLIC PANEL albumin 4.7 gm/dL 3.5-5. 2 Not Available [facility] [address] [facility] [address], [place], [address], 09/05/2023 12:03:05 08/26/19 24 08/26/2023 COMPR EHENS PER METAB OLIC PANEL bilirubin, total 0.20 mg/dL 0.00-1 .20 Not Available [facility] [address] [place] [address] [address], [place], [address], 09/05/2023 12:03:05 08/26/19 24 08/26/2023 COMPR EHENS PER METAB OLIC PANEL alkaline phosphatase (ALP) 100 U/L 39-117 Not Available [facility] [address] [facility] [address], [place], [address], 09/05/2023 12:03:05 08/26/19 24 08/26/2023 COMPR EHENS PER METAB OLIC PANEL aspartate aminotransfe rase (AST) 26 U/L 0-32 Not Available [place] [id number] [facility] [address], [place], [address], 09/05/2023 12:03:05 08/26/19 24 08/26/2023 COMPR EHENS PER METAB OLIC PANEL alanine aminotransfe rase (ALT) 30 U/L 0-33 Not Available [address], [place], [address], 09/05/2023 12:03:05 08/26/19 24 08/26/2023 COMPR EHENS PER METAB OLIC PANEL A/G ratio (calculated) 1.6 ratio 1.0-2. 7 Not Available [place] [id number] [facility] [address], [place], [address], 09/05/2023 12:03:05 08/26/19 24 08/26/2023 COMPR EHENS PER METAB OLIC PANEL globulin (calculated) 2.9 gm/dL 1.5-3. 8 Not Available [facility] [address] [facility] [address], [place], [address], 09/05/2023 12:03:05 08/26/19 24 08/26/2023 COMPR EHENS PER METAB OLIC PANEL BUN/creatini ne ratio (calculated) 14.4 ratio 8.0-20 .0 Not Available [facility] [address] [facility] [address], [place], [address], 09/05/2023 12:03:05 08/26/19 24 08/26/2023 COMPR EHENS PER METAB OLIC PANEL serum hemolysis index NORMAL index normal Not Available [facility] [address] [facility] [address], [place], [address], 09/05/2023 12:03:05 08/26/19 24 08/26/2023 FREE T4 thyroxine (T4), free 1.26 NG/dL 0.82-1 .77 Not Available [facility] [address] [facility] [address], [place], [address], 09/05/2023 12:03:06 08/26/19 24 08/26/2023 HEPAT ITIS C ANTIB KATHY (HCV) WITH REFLE X TO QUANT ITATI VE, RT-PC R (NON- GRAPH ICAL) HCV Ab, qualitative NON-RE ACTIVE non-re active Not Available [facility] [address] [facility] [address], [place], [address], 09/05/2023 12:03:07 08/26/19 24 08/26/2023 LIPID PANEL W/ CALC. LDL cholesterol, total 222 mg/dL 100-19 9 high Not Available [facility] [address] [facility] [address], [place], [address], 09/05/2023 12:03:08 08/26/19 24 08/26/2023 LIPID PANEL W/ CALC. LDL HDL cholesterol 58 mg/dL =>40 Not Available [facility] [address] [facility] [address], [place], [address], 09/05/2023 12:03:08 08/26/19 24 08/26/2023 LIPID PANEL W/ CALC. LDL LDL cholesterol (calculated) 129 mg/dL 0-99 high Not Available [facility] [address] [facility] [address], [place], [address], 09/05/2023 12:03:08 08/26/19 24 08/26/2023 LIPID PANEL W/ CALC. LDL triglyceride s 173 mg/dL 50-149 high Not Available [facility] [address] [facility] [address], [place], [address], 09/05/2023 12:03:08 08/26/19 24 08/26/2023 LIPID PANEL W/ CALC. LDL chol/HDL ratio (calculated) 3.83 ratio 0.00-5 .00 Not Available [facility] [address] [facility] [address], [place], [address], 09/05/2023 12:03:08 08/26/19 24 08/26/2023 LIPID PANEL W/ CALC. LDL VLDL cholesterol (calculated) 35 mg/dL 5-40 Not Available [facility] [address] [facility] [address], [place], [address], 09/05/2023 12:03:08 08/26/19 24 08/26/2023 THYRO ID-ST IM. HORMO NE (TSH) , HIGH- SENSI TIVE thyroid-stim . hormone (TSH), hs 1.63 uIU/m L 0.27-4 .20 Not Available [facility] [address] [facility] [address], [place], [address], 09/05/2023 12:03:08 08/26/19 24 08/26/2023 CBC WITH AUTO- DIFFE RENTI AL WBC 6.2 10*3/ uL 3.4-10 .8 Not Available [facility] [address], [place], [address], 09/05/2023 12:03:09 08/26/19 24 08/26/2023 CBC WITH AUTO- DIFFE RENTI AL RBC 4.91 10*6/ uL 3.80-5 .30 Not Available [facility] [address], [place], [address], 09/05/2023 12:03:09 08/26/19 24 08/26/2023 CBC WITH AUTO- DIFFE RENTI AL HGB 14.1 g/dL 11.1-1 5.9 Not Available [facility] [address] [facility] [address], [place], [address], 09/05/2023 12:03:09 08/26/19 24 08/26/2023 CBC WITH AUTO- DIFFE RENTI AL HCT 43.6 % 34.0-4 6.6 Not Available [facility] [address] [facility] [address], [place], [address], 09/05/2023 12:03:09 08/26/19 24 08/26/2023 CBC WITH AUTO- DIFFE RENTI AL MCV 89 fL 79-97 Not Available [facility] [address] [facility] [address], [place], [address], 09/05/2023 12:03:09 08/26/19 24 08/26/2023 CBC WITH AUTO- DIFFE RENTI AL MCH 28.7 pg 26.6-3 3.0 Not Available [facility] [address] [facility] [address], [place], [address], 09/05/2023 12:03:09 08/26/19 24 08/26/2023 CBC WITH AUTO- DIFFE RENTI AL MCHC 32.3 g/dL 31.5-3 5.7 Not Available [facility] [address] [facility] [address], [place], [address], 09/05/2023 12:03:09 08/26/19 24 08/26/2023 CBC WITH AUTO- DIFFE RENTI AL RDW 13.8 % 11.5-1 4.5 Not Available [facility] [address] [facility] [address], [place], [address], 09/05/2023 12:03:09 08/26/19 24 08/26/2023 CBC WITH AUTO- DIFFE RENTI AL platelets 333 10*3/ uL 150-40 0 Not Available [facility] [address] [facility] [address], [place], [address], 09/05/2023 12:03:09 08/26/19 24 08/26/2023 CBC WITH AUTO- DIFFE RENTI AL MPV 12 fL 9-13 Not Available [facility] [address] [facility] [facility] [address], [place], [address], 09/05/2023 12:03:09 08/26/19 24 08/26/2023 CBC WITH AUTO- DIFFE RENTI AL neutrophils 51.4 % 40.0-7 4.0 Not Available [facility] [address] [facility], [place], [address], 09/05/2023 12:03:09 08/26/19 24 08/26/2023 CBC WITH AUTO- DIFFE RENTI AL absolute neutrophils 3.18 10*3/ uL 1.40-7 .00 Not Available [facility] [address] [facility] [address], [place], [address], 09/05/2023 12:03:09 08/26/19 24 08/26/2023 CBC WITH AUTO- DIFFE RENTI AL lymphocytes 39.0 % 14.0-4 6.0 Not Available [facility] [address] [facility] [address], [place], [address], 09/05/2023 12:03:09 08/26/19 24 08/26/2023 CBC WITH AUTO- DIFFE RENTI AL absolute lymphocytes 2.42 10*3/ uL 0.70-3 .10 Not Available [facility] [address] [facility] [address], [place], [address], 09/05/2023 12:03:09 08/26/19 24 08/26/2023 CBC WITH AUTO- DIFFE RENTI AL monocytes 6.9 % 4.0-12 .0 Not Available [facility] [address] [facility] [address], [place], [address], 09/05/2023 12:03:09 08/26/19 24 08/26/2023 CBC WITH AUTO- DIFFE RENTI AL absolute monocytes 0.43 10*3/ uL 0.10-0 .90 Not Available [facility] [address] [facility] [address], [place], [address], 09/05/2023 12:03:09 08/26/19 24 08/26/2023 CBC WITH AUTO- DIFFE RENTI AL eosinophils 1.3 % 0.0-5. 0 Not Available [facility] [address] [facility] [address], [place], [address], 09/05/2023 12:03:09 08/26/19 24 08/26/2023 CBC WITH AUTO- DIFFE RENTI AL absolute eosinophils 0.08 10*3/ uL 0.00-0 .40 Not Available [facility] [address] [facility] [address], [place], [address], 09/05/2023 12:03:09 08/26/19 24 08/26/2023 CBC WITH AUTO- DIFFE RENTI AL basophils 1.1 % 0.0-3. 0 Not Available [facility] [address] [facility] [address], [place], [address], 09/05/2023 12:03:09 08/26/19 24 08/26/2023 CBC WITH AUTO- DIFFE RENTI AL absolute basophils 0.07 10*3/ uL 0.00-0 .20 Not Available [facility] [address] [facility] [address], [place], [address], 09/05/2023 12:03:09 08/26/19 24 08/26/2023 CBC WITH AUTO- DIFFE RENTI AL imm. gran. 0.3 % 0.0-2. 0 Not Available [facility] [address] [facility] [address], [place], [address], 09/05/2023 12:03:09 08/26/19 24 08/26/2023 CBC WITH AUTO- DIFFE RENTI AL abs. imm. gran. 0.02 10*3/ uL 0.00-0 .10 Not Available [facility] [address] [facility] [address], [place], [address], 09/05/2023 12:03:09 08/26/19 24 08/26/2023 ERYTH ROCYT E SEDIM ENTAT ION RATE (ESR) erythrocyte sedimentatio n rate (ESR) 18 mm/HR 0-40 Not Available [facility] [address] [facility] [address], [place], [address], 09/05/2023 12:03:10 08/26/19 24 08/26/2023 URINE DRUG SCREE N, 7-JOLLY EL WITH BUP amphetamines POSITI VE negati ve abnormal Not Available [facility] [address] [facility] [address], [place], [address], 09/05/2023 12:03:10 08/26/19 24 08/26/2023 URINE DRUG SCREE N, 7-JOLLY EL WITH BUP benzodiazepi cristobal POSITI VE negati ve abnormal Inclu paras diaze nando, oxaze nando, nordi azepa m and alpha -OH-a lproz olam. Not Available [facility] [address] [facility] [address], [place], [address], 09/05/2023 12:03:10 08/26/19 24 08/26/2023 URINE DRUG SCREE N, 7-JOLLY EL WITH BUP buprenorphin e (bup) NEGATI VE NG/mL cutoff =10 Not Available [facility] [address] [facility] [address], [place], [address], 09/05/2023 12:03:10 08/26/19 24 08/26/2023 URINE DRUG SCREE N, 7-JOLLY EL WITH BUP cocaine NEGATI VE negati ve Not Available [facility] [address] [facility] [address], [place], [address], 09/05/2023 12:03:10 08/26/19 24 08/26/2023 URINE DRUG SCREE N, 7-OJLLY EL WITH BUP opiates NEGATI VE negati ve Not Available [facility] [address] [facility] [address], [place], [address], 09/05/2023 12:03:10 08/26/19 24 08/26/2023 URINE DRUG SCREE N, 7-JOLLY EL WITH BUP oxycodone NEGATI VE negati ve Not Available [facility] [address] [facility] [address], [place], [address], 09/05/2023 12:03:10 08/26/19 24 08/26/2023 URINE DRUG SCREE N, 7-JOLLY EL WITH BUP cannabinoid (THC) NEGATI VE negati ve Not Available [facility] [address] [facility] [address], [place], [address], 09/05/2023 12:03:10 08/26/19 24 08/26/2023 URINE DRUG SCREE N, 7-JOLLY EL WITH BUP creatinine - uds urine 90.5 mg/dL >20.0 Not Available [facility] [address] [facility] [address], [place], [address], 09/05/2023 12:03:10 08/26/19 24 08/26/2023 URINE DRUG SCREE N, 7-JOLLY EL WITH BUP specific gravity (uds) 1.015 1.003- 1.035 Not Available [facility] [address] [facility] [address], [place], [address], 09/05/2023 12:03:10 08/26/19 24 08/26/2023 URINE DRUG SCREE N, 7-JOLLY EL WITH BUP pH (uds) 6.0 4.5-10 .9 Not Available [facility] [address] [facility] [address], [place], [address], 09/05/2023 12:03:10 08/26/19 24 08/26/2023 URINE DRUG SCREE N, 7-JOLLY EL WITH BUP amphetamines POSITI VE negati ve abnormal Not Available [facility] [address] [facility] [address], [place], [address], 09/05/2023 12:03:10 08/26/19 24 08/26/2023 URINE DRUG SCREE N, 7-JOLLY EL WITH BUP benzodiazepi cristobal POSITI VE negati ve abnormal Inclu paras diaze nando, oxaze nando, nordi azepa m and alpha -OH-a lproz olam. Not Available [facility] [address] [facility] [address], [place], [address], 09/05/2023 12:03:10 08/26/19 24 08/26/2023 URINE DRUG SCREE N, 7-JOLLY EL WITH BUP buprenorphin e (bup) NEGATI VE NG/mL cutoff =10 Not Available [facility] [address] [facility] [address], [place], [address], 09/05/2023 12:03:10 08/26/19 24 08/26/2023 URINE DRUG SCREE N, 7-JOLLY EL WITH BUP cocaine NEGATI VE negati ve Not Available [facility] [address] [facility] [address], [place], [address], 09/05/2023 12:03:10 08/26/19 24 08/26/2023 URINE DRUG SCREE N, 7-JOLLY EL WITH BUP opiates NEGATI VE negati ve Not Available [facility] [address] [facility] [address], [place], [address], 09/05/2023 12:03:10 08/26/19 24 08/26/2023 URINE DRUG SCREE N, 7-JOLLY EL WITH BUP oxycodone NEGATI VE negati ve Not Available [facility] [address] [facility] [address], [place], [address], 09/05/2023 12:03:10 08/26/19 24 08/26/2023 URINE DRUG SCREE N, 7-JOLLY EL WITH BUP cannabinoid (THC) NEGATI VE negati ve Not Available [facility] [address] [facility] [address], [place], [address], 09/05/2023 12:03:10 08/26/19 24 08/26/2023 URINE DRUG SCREE N, 7-JOLLY EL WITH BUP creatinine - uds urine 90.5 mg/dL >20.0 Not Available [facility] [address] [facility] [address], [place], [address], 09/05/2023 12:03:10 08/26/19 24 08/26/2023 URINE DRUG SCREE N, 7-JOLLY EL WITH BUP specific gravity (uds) 1.015 1.003- 1.035 Not Available [facility] [address] [facility] [address], [place], [address], 09/05/2023 12:03:10 08/26/19 24 08/26/2023 URINE DRUG SCREE N, 7-JOLLY EL WITH BUP pH (uds) 6.0 4.5-10 .9 Not Available [facility] [address] [facility] [address], [place], [address], 09/05/2023 12:03:10 08/26/19 24 08/28/2023 HUMAN IMMUN ODEFI CIENC Y VIRUS 1/0/2 (HIV) W/ CONFI RMATI ON HIV Ab/P24 Ag screen NON REACTI VE non reacti ve normal HIV Negat per HIV-1 /HIV- 2 antib odies and HIV-1 p24 antig en were NOT detec vipul. There is no labor atory evide nce of HIV infec tion. Not Available [facility] [address], [place], [address], 09/05/2023 12:03:11 04/22/20 24 04/23/2024 CBC/D IFF AMBIG UOUS DEFAU LT WBC 5.6 x10e3 /uL 3.4-10 .8 normal Not Available [facility] ([facility]) [address] [place], [address], 04/23/2024 10:35:40 04/22/20 24 04/23/2024 CBC/D IFF AMBIG UOUS DEFAU LT RBC 4.87 x10e6 /uL 3.77-5 .28 normal Not Available [facility] ([facility]) [address] [facility], [place], [address], 04/23/2024 10:35:40 04/22/20 24 04/23/2024 CBC/D IFF AMBIG UOUS DEFAU LT hemoglobin 13.8 g/dL 11.1-1 5.9 normal Not Available [facility] ([facility]) [address] [place], [address], 04/23/2024 10:35:40 04/22/20 24 04/23/2024 CBC/D IFF AMBIG UOUS DEFAU LT hematocrit 43.0 % 34.0-4 6.6 normal Not Available [facility] ([facility]) [address] [place], [address], 04/23/2024 10:35:40 04/22/20 24 04/23/2024 CBC/D IFF AMBIG UOUS DEFAU LT MCV 88 fL 79-97 normal Not Available [facility] ([facility]) [address] [facility], [place], [address], 04/23/2024 10:35:40 04/22/20 24 04/23/2024 CBC/D IFF AMBIG UOUS DEFAU LT MCH 28.3 pg 26.6-3 3.0 normal Not Available [facility] ([facility]) [address] [facility], [place], [address], 04/23/2024 10:35:40 04/22/20 24 04/23/2024 CBC/D IFF AMBIG UOUS DEFAU LT MCHC 32.1 g/dL 31.5-3 5.7 normal Not Available [facility] ([facility]) [address] [facility], [place], [address], 04/23/2024 10:35:40 04/22/20 24 04/23/2024 CBC/D IFF AMBIG UOUS DEFAU LT RDW 12.7 % 11.7-1 5.4 Not Available [facility] ([facility]) [address] [facility], [place], [address], 04/23/2024 10:35:40 04/22/20 24 04/23/2024 CBC/D IFF AMBIG UOUS DEFAU LT platelets 275 x10e3 /uL 150-45 0 normal Not Available [facility] ([facility]) [address] [facility], [place], [address], 04/23/2024 10:35:40 04/22/20 24 04/23/2024 CBC/D IFF AMBIG UOUS DEFAU LT neutrophils 56 % not estab. normal Not Available [facility] ([facility]) [address] [facility], [place], [address], 04/23/2024 10:35:40 04/22/20 24 04/23/2024 CBC/D IFF AMBIG UOUS DEFAU LT lymphs 35 % not estab. normal Not Available [facility] ([facility]) [address] [facility], [place], [address], 04/23/2024 10:35:40 04/22/20 24 04/23/2024 CBC/D IFF AMBIG UOUS DEFAU LT monocytes 7 % not estab. normal Not Available [facility] ([facility]) [address] [facility], [place], [address], 04/23/2024 10:35:40 04/22/20 24 04/23/2024 CBC/D IFF AMBIG UOUS DEFAU LT eos 1 % not estab. normal Not Available [facility] ([facility]) [address] [facility], [place], [address], 04/23/2024 10:35:40 04/22/20 24 04/23/2024 CBC/D IFF AMBIG UOUS DEFAU LT basos 1 % not estab. normal Not Available [facility] ([facility]) [address] [facility], [place], [address], 04/23/2024 10:35:40 04/22/20 24 04/23/2024 CBC/D IFF AMBIG UOUS DEFAU LT immature cells [employer] Not Available [facility] ([facility]) [address] [facility], [place], [address], 04/23/2024 10:35:40 04/22/20 24 04/23/2024 CBC/D IFF AMBIG UOUS DEFAU LT neutrophils (absolute) 3.2 x10e3 /uL 1.4-7. 0 normal Not Available [facility] ([facility]) [address] [facility], [place], [address], 04/23/2024 10:35:40 04/22/20 24 04/23/2024 CBC/D IFF AMBIG UOUS DEFAU LT lymphs (absolute) 2.0 x10e3 /uL 0.7-3. 1 normal Not Available [facility] ([facility]) [address] [facility], [place], [address], 04/23/2024 10:35:40 04/22/20 24 04/23/2024 CBC/D IFF AMBIG UOUS DEFAU LT monocytes(ab solute) 0.4 x10e3 /uL 0.1-0. 9 normal Not Available [facility] ([facility]) [address] [facility], [place], [address], 04/23/2024 10:35:40 04/22/20 24 04/23/2024 CBC/D IFF AMBIG UOUS DEFAU LT eos (absolute) 0.1 x10e3 /uL 0.0-0. 4 normal Not Available [facility] ([facility]) [address] [facility], [place], [address], 04/23/2024 10:35:40 04/22/20 24 04/23/2024 CBC/D IFF AMBIG UOUS DEFAU LT baso (absolute) 0.1 x10e3 /uL 0.0-0. 2 normal Not Available [facility] ([facility]) [address] [facility], [place], [address], 04/23/2024 10:35:40 04/22/20 24 04/23/2024 CBC/D IFF AMBIG UOUS DEFAU LT immature granulocytes 0 % not estab. Not Available [facility] ([facility]) [address] [facility], [place], [address], 04/23/2024 10:35:40 04/22/20 24 04/23/2024 CBC/D IFF AMBIG UOUS DEFAU LT immature grans (abs) 0.0 x10e3 /uL 0.0-0. 1 Not Available [facility] ([facility]) [address] [place], [address], 04/23/2024 10:35:40 04/22/20 24 04/23/2024 CBC/D IFF AMBEMILIANO UOUS DEFAU LT NRBC [employer]FT INSPECTION RECORD CLERK Not Available [facility] (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 In accor dance with the [facility] Ambig uous Test Code Polic y dated November 2002, we have assig dave CBC with Sagare andry al/Igor brooks, Test Code #[address] If this is not the testi ng you wishe d to recei ve on this speci men, pleas e conta ct the [facility] Clien t Inqui ry/ Techn ical Servi bharathi Depar tment to jorje fy the test order . We appre ciate your busin ess. Not Available [facility] ([facility]) [address] [facility], [place], [address], 04/23/2024 10:35:40 04/22/20 24 04/23/2024 COMP. METAB OLIC PANEL (14) glucose 103 mg/dL 70-99 above high normal Not Available [facility] ([facility]) [address] [place], [address], 04/23/2024 10:35:42 04/22/20 24 04/23/2024 COMP. METAB OLIC PANEL (14) BUN 12 mg/dL 6-24 normal Not Available [facility] ([facility]) [address] [place], [address], 04/23/2024 10:35:42 04/22/20 24 04/23/2024 COMP. METAB OLIC PANEL (14) creatinine 1.20 mg/dL 0.57-1 .00 above high normal Not Available [facility] ([facility]) [address] [place], [address], 04/23/2024 10:35:42 04/22/20 24 04/23/2024 COMP. METAB OLIC PANEL (14) eGFR 52 mL/mi n/1.7 3 >59 below low normal Not Available [facility] ([facility]) [address] [facility], [place], [address], 04/23/2024 10:35:42 04/22/20 24 04/23/2024 COMP. METAB OLIC PANEL (14) BUN/creatini ne ratio 10 9-23 normal Not Available [facility] ([facility]) [address] [facility] [place], [address], 04/23/2024 10:35:42 04/22/20 24 04/23/2024 COMP. METAB OLIC PANEL (14) sodium 140 mmol/ L 134-14 4 normal Not Available [facility] ([facility]) [address] [facility], [place], [address], 04/23/2024 10:35:42 04/22/20 24 04/23/2024 COMP. METAB OLIC PANEL (14) potassium 4.1 mmol/ L 3.5-5. 2 normal Not Available [facility] ([facility]) [address] [facility], [place], [address], 04/23/2024 10:35:42 04/22/20 24 04/23/2024 COMP. METAB OLIC PANEL (14) chloride 107 mmol/ L 96-106 above high normal Not Available [facility] ([place] [facility]) [address] [facility] [place], [address], 04/23/2024 10:35:42 04/22/20 24 04/23/2024 COMP. METAB OLIC PANEL (14) carbon dioxide, total 19 mmol/ L 20-29 below low normal Not Available [facility] ([facility] [facility]) [address] [facility] [place], [address], 04/23/2024 10:35:42 04/22/20 24 04/23/2024 COMP. METAB OLIC PANEL (14) calcium 9.8 mg/dL 8.7-10 .2 normal Not Available [facility] ([facility]) [address], [place], [address], 04/23/2024 10:35:42 04/22/20 24 04/23/2024 COMP. METAB OLIC PANEL (14) protein, total 7.3 g/dL 6.0-8. 5 normal Not Available [facility] ([facility]) [address] [place], [address], 04/23/2024 10:35:42 04/22/20 24 04/23/2024 COMP. METAB OLIC PANEL (14) albumin 4.4 g/dL 3.8-4. 9 normal Not Available [facility] ([facility]) [address], [place], [address], 04/23/2024 10:35:42 04/22/20 24 04/23/2024 COMP. METAB OLIC PANEL (14) globulin, total 2.9 g/dL 1.5-4. 5 Not Available [facility] ([facility]) [address] [facility], [place], [address], 04/23/2024 10:35:42 04/22/20 24 04/23/2024 COMP. METAB OLIC PANEL (14) bilirubin, total 0.3 mg/dL 0.0-1. 2 normal Not Available [facility] ([facility]) [address] [place], [address], 04/23/2024 10:35:42 04/22/20 24 04/23/2024 COMP. METAB OLIC PANEL (14) alkaline phosphatase 90 IU/L 44-121 normal Not Available [facility] ([facility]) [address] [place], [address], 04/23/2024 10:35:42 04/22/20 24 04/23/2024 COMP. METAB OLIC PANEL (14) AST (SGOT) 20 IU/L 0-40 normal Not Available [facility] ([facility]) [address] [place], [address], 04/23/2024 10:35:42 04/22/20 24 04/23/2024 COMP. METAB OLIC PANEL (14) ALT (SGPT) 19 IU/L 0-32 normal Not Available [facility] ([facility]) [address] [place], [address], 04/23/2024 10:35:42 04/22/20 24 04/23/2024 LIPID PANEL cholesterol, total 221 mg/dL 100-19 9 above high normal Not Available [facility] ([facility]) [address] [place], [address], 04/23/2024 10:35:43 04/22/20 24 04/23/2024 LIPID PANEL triglyceride s 182 mg/dL 0-149 above high normal Not Available [facility] ([facility]) [address] [place], [address], 04/23/2024 10:35:43 04/22/20 24 04/23/2024 LIPID PANEL HDL cholesterol 53 mg/dL >39 normal Not Available [facility] ([facility]) [address] [place], [address], 04/23/2024 10:35:43 04/22/20 24 04/23/2024 LIPID PANEL VLDL cholesterol radha 32 mg/dL 5-40 Not Available [facility] ([facility]) [address] [place], [address], 04/23/2024 10:35:43 04/22/20 24 04/23/2024 LIPID PANEL LDL chol calc ([facility]) 136 mg/dL 0-99 above high normal Not Available [facility] (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) [address] [facility], [place], [address], 04/23/2024 10:35:43 04/22/20 24 04/23/2024 HEMOG LOBIN A1C hemoglobin A1C 6.0 % 4.8-5. 6 above high normal Predi abete s: 5.7 - 6.4 Diabe suresh: >6.4 Glyce elsa contr ol for adult s with diabe suresh: <7.0 Not Available [facility] ([facility]) [address] [facility], [place], [address], 04/23/2024 10:35:43 04/22/20 24 04/23/2024 TSH TSH 1.960 uIU/m L 0.450- 4.500 normal Not Available [facility] ([facility]) [address] [facility], [place], [address], 04/23/2024 10:35:44 04/22/20 24 04/23/2024 C-PEP TIDE, SERUM C-peptide, serum 3.9 NG/mL 1.1-4. 4 C-Pep tide refer ence inter pilo is for fasti ng patie nts. Not Available [facility] ([facility]) [address] [facility], [place], [address], 04/23/2024 10:35:45 04/22/20 24 04/22/2024 AMBIG ABBRE V CMP14 DEFAU LT ambig abbrev CMP14 default Commen t A hand- writt en panel /prof scott was recei haider from your offic e. In accor dance with the [facility] Ambig uous Test Code Polic y dated November 2002, we have compl eted your order by using the close st curre ntly or forme rly recog nized AMA panel . We have assig dave Compr ehens per Metab olic Panel (14), Test Code #32[address]. If this is not the testi ng you wishe d to recei ve on this speci amy castanon ct the [facility] Joeien t Inqui ry/Te chnic al Servi bharathi Depar tment to jorje fy the test order . We appre ciate your busin ess. Not Available [facility] ([facility]) [address] [facility], [place], [address], 04/23/2024 10:35:46 05/27/19 24 05/27/2023 elect rocar diogr am No observ ation record ed. [facility], [facility] [address], [place], [address], 08/26/2023 16:24:22 05/27/19 24 05/27/2023 US, echoc ardio gram No observ ation record ed. [facility], [facility] [address], [place], [address], 08/26/2023 16:24:22 05/27/19 24 05/27/2023 elect rocar diogr am No observ ation record ed. [facility], [facility] [address], [place], [address], 08/26/2023 16:24:22 06/21/19 24 06/07/2023 home sleep study No observ ation record ed. [facility] [address], [place], [address], 08/26/2023 16:24:21 06/21/19 24 06/07/2023 home sleep study No observ ation record ed. [facility] [address], [place], [address], 08/26/2023 16:24:22 07/21/19 24 07/07/2023 US, echoc ardio gram No observ ation record ed. [facility] Not Available 2023 16:24:21 07/22/19 24 07/07/2023 , echo ardio gram No observ ation record ed. [facility] [address], [place], [address], 08/26/2023 16:24:21 Result Notes None recorded. Problems Name Problem SNOMED Code Status Onset Date Resolution Date Notes Provider Name and Address Organization Details Recorded Time Body mass index 40+ - severely obese 589797283 Active 2023 Jose Armando Marshall MD [address], [place], [address], [facility] 4 17:17:39 Mixed hyperlipide miranda 818099062 Active 2023 Jose Armando Marshall MD [address], [place], [address], [facility] 4 17:22:16 Major depressive disorder 179010002 Active 2023 Jose Armando Marshall MD [address], [place], [address], [facility] 4 17:29:35 Benign hypertensio n 12654644 Active 2023 Jose Armando Marshall MD [address], [place], [address], [facility] 4 17:36:06 Serum creatinine above reference range 715721879 Active 2023 Jose Armando Marshall MD [address], [place], [address], [facility] 4 16:23:15 Prediabetes 785135316 Active 2023 Jose Armando Marshall MD [address], [place], [address], [facility] 4 16:23:55 Attention deficit hyperactivi ty disorder, predominant ly inattentive type 09310594 Active 2023 Jose Armando Marshall MD [address], [place], [address], [facility] 4 16:12:48 Elevated blood-press ure reading without diagnosis of hypertensio n 961400221 Active 2023 Jose Armando Marshall MD [address], [place], [address], [facility] 4 16:15:51 Snoring 75623377 Active 2023 Jose Armando Marshall MD [address], [place], [address], [facility] 4 16:18:13 Family history of diabetes mellitus 252242898 Active 2023 Jose Armando Marshall MD [address], [place], [address], [facility] 4 16:18:15 Family history of coronary arterioscle rosis 435710587 Active 2023 Jose Armando Marshall MD [address], [place], [address], [facility] 4 16:18:18 Family history of breast cancer 505138073 Active 2023 Jose Armando Marshall MD [address], [place], [address], [facility] 4 16:18:19 Mixed anxiety and depressive disorder 750205201 Active 2023 Jose Armando Marshall MD [address], [place], [address], [facility] 4 16:18:23 Long-term drug therapy Active 2023 Jose Armando Marshall MD [address], [place], [address], [facility] 4 16:18:25 History of SARS-CoV-2 9502914697582 99735 Active 2023 Jose Armando Marshall MD [address], [place], [address], [facility] 4 16:18:29 Migraine 23641744 Active 2023 Jose Armando Marshall MD [address], [place], [address], [facility] 4 16:18:32 Electrocard iogram abnormal 068023077 Active 2023 Jose Armando Marshall MD [address], [place], [address], [facility] 4 16:40:09 Obstructive sleep apnea of adult 6975270618035 Active 2023 Jose Armando Marshall MD [address], [place], [address], [facility] 4 00:28:13 Hand eczema 303861209 Active 2023 Jose Armando Marshall MD [address], [place], [address], [facility] 4 16:30:18 Problem Notes None recorded. Procedures Surgical History Date Name Laterality Status Provider Name and Address Organization Details Recorded Time Colonoscopy completed Jose Armando Marshall MD [address], [place], [address], [facility] 12/09/2023 17:51:54 Imaging Results Imaging Date Name Status LastModified by Organization Details LastModified Time 05/27/2023 electrocardiogram completed [facility] [employer] [employer], [facility] [address], [place], [address], 08/26/2023 16:24:22 05/27/2023 US, echocardiogram completed [facility] [employer] [employer], [facility] [address], [place], [address], 08/26/2023 16:24:22 05/27/2023 electrocardiogram completed [facility] [address], [place], [address], 08/26/2023 16:24:22 06/07/2023 home sleep study completed [facility] [address], [place], [address], 08/26/2023 16:24:21 06/07/2023 home sleep study completed [facility] [address], [place], [address], 08/26/2023 16:24:22 07/07/2023 US, echocardiogram completed [facility] Inform ation not available 08/26/2023 16:24:21 07/07/2023 US, echocardiogram completed [facility], [facility] [address], [place], [address], 08/26/2023 16:24:21 Procedure Notes None recorded. Medical Equipment None Reported. Allergies No known drug allergies Medications Name Sig Start Date Stop Date Status Note LastModified by Organization Details LastModified Time hydrocodone 5 mg-acetamin ophen 325 mg tablet TAKE 1 TABLET BY MOUTH EVERY 6 HOURS NEEDED FOR PAIN 08/25 completed Not Available Not Available Not Available prednisone 20 mg tablet TAKE 2 TABLETS BY MOUTH DAILY FOR 3 DAYS, TAKE 1 TABLET DAILY FOR 3 DAYS 05/27 completed Not Available Not Available Not Available sumatriptan 50 mg tablet TAKE 1 TABLET BY MOUTH EVERY DAY NEEDED active Not Available Not Available No t Available topiramate 25 mg tablet TAKE 1 TABLET BY MOUTH TWICE A DAY 2024 active Not Available Not Available Not Avai lable amlodipine 2.5 mg tablet TAKE 1 TABLET EVERY DAY BY ORAL ROUTE IN THE MORNING. active Not Available Not Available No t Available sulfamethox azole 800 mg-trimetho prim 160 mg tablet active Not Available Not Available Not Available doxycycline monohydrate 100 mg tablet TAKE 1 TABLET BY MOUTH TWICE A DAY 05/27 completed Not Available Not Available Not Available acetaminoph en 500 mg tablet TAKE 1 TABLET BY MOUTH EVERY 6 HOURS NEEDED FOR PAIN active Not Available Not Available No t Available triamcinolo ne acetonide 0.1 % topical cream APPLY THIN COAT TO AFFECTED AREA TWICE A DAY active Not Available Not Available No t Available dextroamphe tamine-amph etamine 30 mg tablet TAKE 0.5 TABLETS TWICE A DAY BY ORAL ROUTE NEEDED. active Not Available Not Available No t Available methocarbam ol 750 mg tablet TAKE 1 TABLET BY MOUTH THREE TIMES A DAY 03/15 completed Not Available Not Available Not Available cyanocobala min (vit B-12) 500 mcg tablet active Not Available Not Available N ot Available buspirone 30 mg tablet TAKE ONE TABLET IN THE MORNING AND 1/2 TAB IN THE EVENING active Not Available Not Available No t Available neomycin-po lymyxin-dex ameth 3.5 mg/mL-10,00 0 unit/mL-0.1 % eye drops INSTILL 1 DROP INTO AFFECTED EYE(S) EVERY 8 HOURS 03/15 completed Not Available Not Available Not Available ergocalcife rol (vitamin D2) 1,250 mcg (50,000 unit) capsule active Not Available Not Available Not Available ibuprofen 600 mg tablet TAKE 1 TABLET BY MOUTH THREE TIMES A DAY NEEDED FOR PAIN OR FEVER 08/25 completed Not Available Not Available Not Available albuterol sulfate HFA 90 mcg/actuati on aerosol inhaler INHALE 2 PUFFS 4 TIMES A DAY NEEDED FOR SHORTNESS OF BREATH OR FOR WHEEZE 05/27 completed Not Available Not Available Not Available metformin ER 500 mg tablet,exte nded release 24 hr Take 1 tablet every day by oral route at dinner. active Not Available Not Available No t Available diazepam 5 mg tablet TAKE 1 TABLET BY MOUTH TWICE A DAY NEEDED FOR ANXIETY 08/25 completed Not Available Not Available Not Available rosuvastati n 10 mg tablet Take 1 tablet every day by oral route. active Not Available Not Available No t Available bupropion HCl XL 300 mg 24 hr tablet, extended release TAKE 1 TABLET BY MOUTH EVERY DAY 03/15 completed Not Available Not Available Not Available 12 Hour Decongestan t ER 120 mg tablet,exte nded release TAKE 1 TABLET BY MOUTH EVERY 12 HOURS NEEDED FOR NASAL CONGESTIO N 08/25 completed Not Available Not Available Not Available Nara Mohamud [employer] spacer USE DIRECTED 05/27 completed Not Available Not Available Not Available Mounjaro 2.5 mg/0.5 mL subcutaneou s pen injector Inject 2.5 mg every week by subcutane ous route. 01/06 completed Not Available Not Available Not Available Auvelity 45 mg-105 mg tablet, extended release TAKE 1 TABLET BY MOUTH TWICE A DAY active Not Available Not Available No t Available Vitals Date Recorded Body temperature Body height Respiratory rate Heart rate Body mass index (BMI) Body weight Systolic blood pressure Diastolic blood pressure Provider Name and Address Organization Details Last Updated DateTime 4 97.8 [degF] 175.26 cm 16 /min 93 /min 34 kg/m2 151166. 25 g 145 mm[Hg] 84 mm[Hg] Petty Nolan [facility] 4 15:37:44 Date Recorded Body height Body temperature Body mass index (BMI) Body weight Respiratory rate Heart rate Systolic blood pressure Diastolic blood pressure Provider Name and Address Organization Details Last Updated DateTime 4 175.26 cm 97.8 [degF] 41.5 kg/m2 777690. 46 g 16 /min 83 /min 157 mm[Hg] 90 mm[Hg] Petty Nolan [facility] 4 16:12:27 Date Recorded Body height Body mass index (BMI) Body weight Respiratory rate Body temperature Heart rate Systolic blood pressure Diastolic blood pressure Provider Name and Address Organization Details Last Updated DateTime 4 175.26 cm 41.8 kg/m2 388059. 64 g 16 /min 97.7 [degF] 78 /min 149 mm[Hg] 90 mm[Hg] Eun Mcclendon [facility] 4 16:59:00 Date Recorded Body height Body mass index (BMI) Body weight Body temperature Respiratory rate Heart rate Provider Name and Address Organization Details Last Updated DateTime 4 175.26 cm 41.2 kg/m2 122997. 27 g 97.4 [degF] 16 /min 87 /min Petty Nolan [facility] 4 17:03:42 Date Recorded Systolic blood pressure Diastolic blood pressure Provider Name and Address Organization Details Last Updated DateTime 03/15/2024 158 mm[Hg] 88 mm[Hg] Jose Armando Marshall MD [address], [place], [address], [facility] 03/15/2024 17:26:15 Social History None recorded. Functional Status None recorded. Mental Status None recorded. Family History Nothing Reported. Medical History No medical history recorded. Gynecological HistoryNo gynecological history recorded. Obstetrics History GPAL:G 0 P 0 0 0 0 Immunizations Vaccine Type Date Status Note Provider Nam e and Address Organization Details Recorded Time influenza, unspecified formulation 02/07/2023 completed Jose Armando Marshall MD [address], [place], [address], [facility] 05/27/2023 16:04:01 COVID-19, mRNA, LNP-S, PF, sherrill-sucrose, 30 mcg/0.3 mL 02/07/2024 completed Jose Armando Marshall MD [address], [place], [address], [facility] 02/10/2024 19:10:16 Influenza, split virus, trivalent, PF 02/07/2024 completed Jose Armando Marshall MD [address], [place], [address], [facility] 02/10/2024 19:10:16 zoster recombinant 02/21/2024 completed Jose Armando Marshall MD [address], [place], [address], [facility] 05/07/2024 14:18:20 zoster recombinant 05/05/2024 christopher Marshall MD [address], [place], [address], [facility] 05/07/2024 14:18:20 Past Encounters Encounter ID Performer Location Encounter Start Date Encounter Closed Date Diagnosis/Indication Diagnosis SNOMED-CT Code Diagnosis ICD10 Code Diagnosis Note [id number] Jose Armando Marshall MD [facility], [facility] [address] [place] [address] 05/27/2023 15:05:03 05/27/2023 17:30:43 Adult health examination 986566822 Z00.00 last ophth eval 07/2022 Fracture of tibia 777614 02 S8A 05/21/23 Sleep apnea 40539804 G47 .30 witnessed by a friend Snoring 75405001 R06.83 check sleep study Family his tory of diabetes mellitus 610482196 Z83.3 father Family his tory of coronary arteriosclerosis 197759952 Z82.49 father Family his tory of breast cancer 498606920 Z80.3 sister Attention deficit hyperactivity disorder, predominantly inattentive type 41987845 F90.0 sees psych on reg basis Mixed anxi ety and depressive disorder 392901211 F41.8 No SI , No HI Long-term drug therapy 522697839 Z79.899 Body mass index 30+ - obesity 034692651 Z68.34 education History of SARS-CoV-2 29 65797058 38493415 Z86.16 04/2023 Screening mammography 24 514228 Z12.31 Screening for malignant neoplasm of cervix 196496407 Z12.4 Screening for malignant neoplasm of colon 621748932 Z12.11 Active or passive immunization 086419854 Z23 Migraine 48581011 G43.90 9 Hand eczema 275096550 L3 0.9 Elevated blood-pressure reading without diagnosis of hypertension 070358675 R03.0 dash dietBP 2 weeks Viral screening 94431018 4 Z11.59 [id number] Jose Armando Marshall MD [facility], [facility] [address] [place] [address] 08/26/2023 15:51:58 08/26/2023 16:45:44 Fracture of tibia 09509905 S8A 05/21/23 , seen ortho , on PT now Sleep apnea 11112871 G47 .30 witnessed by a friend seen pulvictorino , did not get CPAP yet Family his tory of diabetes mellitus 042415078 Z83.3 father Family his tory of coronary arteriosclerosis 606316196 Z82.49 father Family his tory of breast cancer 305160580 Z80.3 sister Attention deficit hyperactivity disorder, predominantly inattentive type 52277425 F90.0 sees psych on reg basis Mixed anxi ety and depressive disorder 351258117 F41.8 No SI , No HI Long-term drug therapy 480971510 Z79.899 Body mass index 30+ - obesity 613234718 Z68.34 education History of SARS-CoV-2 29 52856095 70726804 Z86.16 04/2023 Elevated blood-pressure reading without diagnosis of hypertension 891354062 R03.0 dash dietBP 2 weeks Migraine 67699720 G43.90 9 Hand eczema 145107090 L3 0.9 better with triamcinol one Screening mammography 24 623294 Z12.31 Screening for malignant neoplasm of cervix 230966032 Z12.4 Screening for malignant neoplasm of colon 417686358 Z12.11 Active or passive immunization 728134535 Z23 Viral screening 30235080 4 Z11.59 Hyperlipid emia screening 366882164 Z13.220 [id number] Jose Armando Marshall MD [facility] [address] [place] [address] 12/07/2023 16:47:35 12/09/2023 10:09:25 Mixed anxiety and depressive disorder 459572324 F41.8 No SI , No HI Attention deficit hyperactivity disorder, predominantly inattentive type 94341382 F90.0 sees psych on reg basis Body mass index 40+ - severely obese 606170952 Z68.41 education Obstructiv e sleep apnea of adult 9637993182 103 G47.33 on CPAP Migraine 62971470 G43.90 9 stable Screening mammography 24 461953 Z12.31 Screening for malignant neoplasm of cervix 186484370 Z12.4 Screening for malignant neoplasm of colon 129326783 Z12.11 per pt had C scope 10/27/23 Active or passive immunization 788865733 Z23 Mixed hyperlipidemia 267 833403 E78.2 [id number] Jose Armando Marshall MD [facility] [address] [place] [address] 03/15/2024 16:40:28 03/15/2024 17:45:44 Major depressive disorder 412711120 F32.9 No SI , No HI Body mass index 40+ - severely obese [id number] Z68.41 education Obstructiv e sleep apnea of adult [id number] 103 G47.33 on CPAP Migraine [id number] G43.90 9 stable Long-term drug therapy [id number] Z79.899 Family his tory of diabetes mellitus [id number] Z83.3 father Family his tory of coronary arteriosclerosis [id number] Z82.49 father Benign hypertension 1072 5009 I10 last EKG 06/07/23las t optometry 07/2023 Mixed hyperlipidemia 267 554277 E78.2 Screening mammography 24 646160 Z12.31 Screening for malignant neoplasm of cervix 134751629 Z12.4 Screening for malignant neoplasm of colon 801864673 Z12.11 per pt had C scope 10/27/23 Active or passive immunization 533459235 Z23 up to date Health Concerns Section Related Observation LastModified by Organization Detai ls LastModified Time None Recorded Concern Status LastModified by Organization Details LastModified Time None Recorded Advance Directives Directive None Recorded Payers Encounter Date Sequence Insurance Name Policy Number Policy Goff Covered Member ID Goff Member ID Guarantor Name 05/27/2023 1 [place] [id number] Bela Yuly [id number] Bela Yuly 08/26/2023 1 [place] [id number] Bela Yuly [id number] Bela Yuly 12/07/2023 1 [place] [id number] Bela Yuly [id number] Bela Yuly 03/15/2024 1 [place] [id number] Bela Yuly [id number] Bela Yuly Notes Date Note Type Note Provider Name and Address Organization Details Recorded Time 05/27/2023 text/html Hypertension F/UReported bypatient.Medications: taking medications as directed; no side effects from medication Lifestyle:regular exercise; limiting/avoiding salt; compliant with low salt diet Associated Symptoms:no dizziness; no lightheadedness; no chest pain; no shortness of breath; no palpitations; no edema; no calf pain with exertion; no headacheMedicare Annual Wellness VisitReported bypatient.Diet and Nutrition:healthy diet Fracture Risk:no history of fractures; no recent explained fracture; no sudden unexplained fractures; no previous musculoskeletal injuries Physical Activity:recent increase in physical activity; good physical condition; discussed exercise habits Depression Risk:never feels sad, empty, or tearful; no loss of interest in activities; no significant changes in weight; no sleep disturbances or insomnia; no agitation; no loss of energy; no feelings of worthlessness or guilt; no thoughts of suicide; no history of depression; no history of mood disorders Orientation:no disorientation to time; no disorientation to date; no disorientation to place Concentration and Memory:no decreased concentrating ability; no memory lapses or loss; does not forget words Speech/Motor difficulties:no speech difficulties; no difficulty expressing formulated concepts; no difficulty with fine manipulative tasks; no difficulty writing/copying; no slowed reaction time; does not knock things over when trying to pick them up Hearing:no loss of hearing Vision:no vision problems Falls Risk Assessment:no frequent falls while walking; no fall in the past year; no dizziness/vertigo Home Safety:use of seatbelts; no vision or hearing loss while driving Jose Armando Marshall MD [address] [facility] [address], [place], [address], [facility] 05/27/2023 16:24:03 08/26/2023 text/html Hypertension F/UReported bypatient.Medications: taking medications as directed; no side effects from medication Lifestyle:regular exercise; limiting/avoiding salt; compliant with low salt diet Associated Symptoms:no dizziness; no lightheadedness; no chest pain; no shortness of breath; no palpitations; no edema; no calf pain with exertion; no headache Jose Armando Marshall MD [address] [facility] [address], [place], [address], [facility] 08/26/2023 16:36:39 12/07/2023 text/html Hypertension F/UReported bypatient.Medications: taking medications as directed; no side effects from medication Lifestyle:regular exercise; limiting/avoiding salt; compliant with low salt diet Associated Symptoms:no dizziness; no lightheadedness; no chest pain; no shortness of breath; no palpitations; no edema; no calf pain with exertion; no headache Jose Armando Marshall MD [address], [place], [address], [facility] 12/07/2023 17:27:10 03/15/2024 text/html Hypertension F/UReported bypatient.Medications: taking medications as directed; no side effects from medication Lifestyle:regular exercise; limiting/avoiding salt; compliant with low salt diet Associated Symptoms:no dizziness; no lightheadedness; no chest pain; no shortness of breath; no palpitations; no edema; no calf pain with exertion; no headache Jose Armando Marshall MD [address] [place] [address] [address], [place], [address], [facility] 03/15/2024 17:40:38 OBGyn Episode No OBEpisode recorded.
--- OUTSIDE RECORDS SUMMARY | 2024-06-14 08:34 | XMS_ITS | Encounter Summary ---
Author Organization [facility] - [facility] Address [address] [place] [address] Care Team Providers Care Block Hacker Name Role Phone Alison Ngo FELLING MACHINE OPERATOR Primary Care Provider [phone] Encounter Details Date Type Department Care Team ([facility] st Contact Info) Description 04/06/2022 [employer] Message [employer] [facility] - [place] [address] [place] [address] [facility] Provider Schedule Appointment: Annual Physical Due Social History Tobacco Use Types Packs/Day Years Used Date Smoking Tobacco: Never Smokeless Tobacco: Never Alcohol Use Standard Drinks/Week Comments Yes 0 (1 standard drink = 0.6 oz pur e alcohol) AUDIT-C Answer Date Recorded Frequency of Alcohol Consumption Never 04/25/2019 Average Number of Drinks Not on file 019 Frequency of Binge Drinking Not on file 04/09 PHQ-2 Answer Date Recorded PHQ-2 Score 3 04/25/2019 Comments No Sex and Gender Information Value Date Recorded Sex Assigned at Not on file Legal Sex Female 6:13 PM CDT Gender Identity Not on file Sexual Orientation Not on file documented as of this encounter Plan of Treatment Not on file documented as of this encounter Visit Diagnoses Not on filedocumented in this encounter Additional Health Concerns Assessment Noted Time PHQ-9 Depression Total Score: 17 019 5:40 PM BINMAN documented as of this encounter Care Teams Block Hacker Relationship Specialty Start Date End Date Alison Ngo, FELLING MACHINE OPERATOR [address] [place] [address] [phone] PCP - General Nurse Practitioner Family 04/05/19 documented as of this encounter
--- OUTSIDE RECORDS SUMMARY | 2024-06-14 08:35 | XMS_ITS | Referral Summary ---
Author Organization [facility] Address [address] [place] [address] Care Team Providers Care General Farmer Name Role Phone Alison Ngo MAGAZINE WORKER-DRUG ROOM CLERK Primary Care Provider [phone] Source Comments [facility],non-[facility] Affiliates and Associated Physician Practices is amultiple site organization consisting of ambulatory clinics and hospital sitesin [place], [place], [place] and [place]. This disclosure is being madepursuant to the Care Everywhere program and may not contain all information available regarding this patient. Last updated 18.[facility] Allergies No known active allergies Medications * Be aware that medications may not be up to date on this document. Alwaysverify current medications with the patient. Medication Sig Dispensed Refills Start Date End Date Status buPROPion XL 24hr (WELLBUTRIN-XL) 300 MG tablet Take 300 mg by mouth every morning. Active amphetamine-dextroamp hetamine XR 24hr (ADDERALL XR) 15 MG capsule Take 15 mg by mouth once daily Active busPIRone (BUSPAR) 15 MG tablet Take 15 mg by mouth once daily Active albuterol HFA (PROAIR HFA) 108 (90 Base) MCG/ACT inhalerIndications:Ac jonh bronchitis, unspecified organism Inhale 2 (two) puffs by mouth every 4 hours as needed 18 g 02/09/2021 Active methylPREDNISolone (MEDROL DOSEPAK) 4 MG tabletIndications:Acu te bronchitis, unspecified organism Take by mouth as directed Take as directed by mouth per package instructions. 21 tablet 02/09/2021 Active Active Problems Problem Noted Date Diagnosed Date Syncope and collapse 01/22/2009 Social History Tobacco Use Types Packs/Day Years Used Date Smoking Tobacco: Former Smokeless Tobacco: Never Alcohol Use Standard Drinks/Week Comments No 0 (1 standard drink = 0.6 oz pur e alcohol) Sex and Gender Information Value Date Recorded Sex Assigned at Not on file Gender Identity Not on file Sexual Orientation Not on file Last Filed Vital Signs Vital Sign Reading Time Taken Comments Blood Pressure 120/80 02/09/2021 11:17 AM CDT Pulse 91 02/09/2021 11:17 AM CDT Temperature 36.8 ??C (98.3 ??F) 02/09/2021 11:17 AM C DT Respiratory Rate 16 02/09/2021 11:17 AM CDT Oxygen Saturation 98% 02/09/2021 11:17 AM CDT Inhaled Oxygen Concentration - - Weight 90.7 kg (200 lb) 02/09/2021 11:17 AM CDT Height 175.3 cm (5' 9 ) 02/09/2021 11:17 AM CDT Body Mass Index 29.53 02/09/2021 11:17 AM CDT Plan of Treatment Not on file Procedures Procedure Name Priority Date/Time Associated Diagnosis Comments COMPREHENSIVE METABOLIC PANEL STAT 01/22/2009 5:45 PM CDT from Last 3 Months or Most Recently Relevant to Health Maintenance Results * COMPREHENSIVE METABOLIC PANEL (01/22/2009 5:45 PM CDT) BUN 10 7.0 - 17.0 mg/dl [facility] Sodium 139 137 - 145 mmol/L [facility] Potassium 4.2 3.6 - 5.0 mmol/L [facility] Chloride 106 98.0 - 107.0 mmol/L [facility] Glucose 96 75 - 110 mg/dl [facility] Creatinine 0.9 0.7 - 1.2 mg/dl [facility] AST 32 14.0 - 36.0 U/L [facility] Alkaline Phosphatase 70 38.0 - 126.0 U/L [facility] Calcium 9.9 8.4 - 10.2 mg/dl [facility] Bilirubin Total 0.2 0.2 - 1.3 mg/dl [facility] Albumin 4.7 3.5 - 5.0 gm/dl [facility] Protein Total 8.2 6.3 - 8.2 gm/dl [facility] CO2 27 22.0 - 30.0 mEq/L [facility] ALT 15 9.0 - 52.0 U/L [facility] eGFR by MDRD 73.0 ml/min/1.7 3m2 [facility] BLOOD SPECIMEN / Unknown 01/22/2009 5:45 PM CDT 01/22/2009 5:45 PM CDT Narrative [facility] - 01/22/2009 6:08 PM CDT Perform for patients taking warfari* Ronny Glover MD LAB - CHEMISTRY SRINIVASA LEVINE [facility] [address] [place] [address] from Last 3 Months or Most Recently Relevant to Health Maintenance Advance Directives * Full Code (Latest Code Status on File) Date Activated Date Inactivated Comments 01/23/2009 12:53 AM 01/25/2009 8:54 AM Care Teams General Farmer Relationship Specialty Start Date End Date Alison Ngo, MAGAZINE WORKER-DRUG ROOM CLERK [address] [place] [address] PCP - General Nurse Practitioner Family 02/09/21
--- OUTSIDE RECORDS SUMMARY | 2024-06-14 08:35 | XMS_ITS | Clinical Summary ---
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 Gender Identity Not on file Sexual Orientation Not on file Plan of Treatment Health Maintenance Due Date Last Done Comments Hepatitis C Virus (HCV) Screening 1966 Hepatitis B Immunization (1 of 3 - 19+ 3-dose series) 1985 Pap Smear 1987 Cervical Cancer Screening (CCS) 1996 HPV/Cotest 1996 Colonoscopy 2011 Colorectal Cancer Screening 2011 Cologuard 2016 Immunochemical Fecal Occult Blood 2016 Mammogram 2016 Pneumococcal Immunization (5 0+ years) (1 of 1 - PCV) 2016 Zoster Immunization (1 of 2) 2016 Influenza Immunization (#1) 2024 SARS-COV-2 Immunization ( season) 2024 Respiratory Syncytial Virus (RSV) Immunization (Adult) (1 - 1-dose 75+ series) 2041 DTaP/Tdap/Td Immunization Discontinued 04/25/2019 TdaP Immunization Completed 04/25/2019 Meningococcal Immunization (ACWY) Aged Out No longer eligible based on patient's age to complete this topic Pneumococcal Immunization Combined Aged Out No longer eligible based on patient's age to complete this topic Rotavirus Immunization Aged Out No lo nger eligible based on patient's age to complete this topic
--- OUTSIDE RECORDS SUMMARY | 2024-06-14 08:35 | XMS_ITS | Patient Health Summary ---
Author Organization [facility] Address [address] [place] [address] Care Team Providers Care Mental Health Consultant Name Role Phone Huber Alison Gipson TABULATING CLERK-VOCAL MUSIC INSTRUCTOR Primary Care Provider +1 Note from [facility],non-owned Affiliates and Associated Physician Practices is amultiple site organization consisting of ambulatory clinics and hospital sitesin [place], [place], [place] and [place]. This disclosure is being madepursuant to the Care Everywhere program and may not contain all information available regarding this patient. Last updated 18.[facility] Allergies No known active allergies Medications * Be aware that medications may not be up to date on this document. Alwaysverify current medications with the patient. * buPROPion XL 24hr (WELLBUTRIN-XL) 300 MG tablet Take 300 mg by mouth every morning. * amphetamine-dextroamphetamine XR 24hr (ADDERALL XR) 15 MG capsule Take 15 mg by mouth once daily * busPIRone (BUSPAR) 15 MG tablet Take 15 mg by mouth once daily * albuterol HFA (PROAIR HFA) 108 (90 Base) MCG/ACT inhaler(Started 02/09/2021) Inhale 2 (two) puffs by mouth every 4 hours as needed * methylPREDNISolone (MEDROL DOSEPAK) 4 MG tablet(Started 02/09/2021) Take by mouth as directed Take as directed by mouth per package instructions. Active Problems Problem Noted Date Diagnosed Date [...] Mass Index 29.53 02/09/2021 11:17 AM CDT Procedures * INFLUENZA A+B - POINT OF CARE (AMB)(Performed 06/20/2018) Performed for Upper respiratory tract infection, unspecified type * STREP A SCREEN - POINT OF CARE (AMB) STL(Performed 06/20/2018) Performed for Upper respiratory tract infection, unspecified type * STREP A SCREEN - POINT OF CARE (AMB) STL(Performed 12/18/2017) Performed for Upper respiratory tract infection, unspecified type * CARDIAC RHYTHM STRIP ORDER(Performed 02/09/2009) * CARDIAC EKG ORDER(Performed 02/05/2009) * EEG(Performed 01/30/2009) * XR LUMBAR SPINE 2 OR 3VW(Performed 01/23/2009) Performed for Syncope and Collapse * XR THORACIC SPINE 3VW(Performed 01/23/2009) Performed for Syncope and Collapse * MRI BRAIN WWO CONTRAST(Performed 01/23/2009) Performed for Syncope and Collapse * CARDIAC EKG ORDER(Performed 01/23/2009) * TROPONIN I(Performed 01/23/2009) Performed for Syncope and Collapse * TROPONIN I(Performed 01/22/2009) Performed for Syncope and Collapse * CT HEAD WO CONTRAST(Performed 01/22/2009) Performed for Syncope and Collapse * D-DIMER(Performed 01/22/2009) * URINALYSIS REFLEX TO MICROSCOPIC NO CULTURE(Performed 01/22/2009) * HCG URINE QUALITATIVE - POINT OF CARE(Performed 01/22/2009) * PTT(Performed 01/22/2009) * PT-INR(Performed 01/22/2009) * MYOGLOBIN BLOOD(Performed 01/22/2009) * TROPONIN I(Performed 01/22/2009) * COMPREHENSIVE METABOLIC PANEL(Performed 01/22/2009) * CBC W AUTO DIFFERENTIAL(Performed 01/22/2009) * XR CHEST 1VW PORTABLE(Performed 01/22/2009) Performed for Syncope and Collapse Results * STREP A SCREEN - POINT OF CARE (AMB) STL (06/20/2018) Only the most recent of2 resultswithin the time period is included. Strep A Rapid POCT Negative Negative Strep A Internal Control Present Lot # [id number] Expiration Date Throat ENTIRE THROAT (SURFACE REGION OF NECK) / Unknown 06/20/2018 Suleiman Tucker TABULATING CLERK-[facility] - POINT OF CARE ORDERABLES * INFLUENZA A+B - POINT OF CARE (AMB) (06/20/2018) Pathologist [facility] Influenza A Antigen Rapid Negative Negative Influenza B Antigen Rapid Negative Negative Influenza Internal Control present NEGATIVE - POSITIVE Influenza Lot Number [id number] Influenza Expiration Date 7312,020 Other NASOPHARYNGEAL SWAB / Unknown 06/20/2018 Suleiman Tucker TABULATING CLERK-[facility] - POINT OF CARE ORDERABLES * CARDIAC RHYTHM STRIP ORDER (02/09/2009 9:49 AM CDT) Narrative 02/09/2009 9:49 AM CDT Ordered by an unspecified provider. Transcriptions Document, Scanned - 01/22/2009 12:00 AM CDT Scanned Document CARDIAC SERVICES ORD ERABLES * CARDIAC EKG ORDER (02/05/2009 9:46 AM CDT) Only the most recent of2 resultswithin the time period is included. Narrative 02/05/2009 9:46 AM CDT Ordered by an unspecified provider. Transcriptions Document, Scanned - 01/22/2009 12:00 AM CDT Scanned Document CARDIAC SERVICES ORD ERABLES * EEG (01/30/2009 3:18 PM CDT) Narrative Procedure Note Document, Scanned - 01/22/2009 12:00 AM CDT Carl Luz MD NEUROLOGY ORDERABLES * XR LUMBAR SPINE 2 OR 3 VW (01/23/2009 10:54 PM CDT) Anatomical Region Laterality Modality Spine Radiographic Marah ging 01/24/2009 8:06 AM CDT Impressions 01/24/2009 9:21 AM CDT ??NO ACUTE OSSEOUS ABNORMALITY Narrative 01/24/2009 9:21 AM CDT LUMBOSACRAL SPINE ??2 VIEWS INDICATION: Low back pain, seizure and numbness in legs. FINDINGS: AP and lateral views of the lumbar spine show no evidence of displaced fracture, subluxation or dislocation. Procedure Note Jeff Figueroa MD - 01/24/2009 LUMBOSACRAL SPINE 2 VIEWS INDICATION: Low back pain, seizure and numbness in legs. FINDINGS: AP and lateral views of the lumbar spine show no evidence of displaced fracture, subluxation or dislocation. IMPRESSION NO ACUTE OSSEOUS ABNORMALITY Carl Luz MD DIAGNOSTIC IMAGING O RDERABLES * XR THORACIC SPINE 3 VW (01/23/2009 10:54 PM CDT) Anatomical Region Laterality Modality Spine Radiographic Marah ging 01/24/2009 8:06 AM CDT Impressions 01/24/2009 9:21 AM CDT MILD SCOLIOSIS, OTHERWISE UNREMARKABLE. Narrative 01/24/2009 9:21 AM CDT THORACIC SPINE 3 VIEWS INDICATION: thoracic spine pain, back pain, seizure. FINDINGS: Three views of the thoracic spine show slight right convexed midthoracic scoliosis. There is no evidence of acute fracture, subluxation or a dislocation. Procedure Note Jeff Figueroa MD - 01/24/2009 THORACIC SPINE 3 VIEWS INDICATION: thoracic spine pain, back pain, seizure. FINDINGS: Three views of the thoracic spine show slight right convexed midthoracic scoliosis. There is no evidence of acute fracture, subluxation or a dislocation. IMPRESSION MILD SCOLIOSIS, OTHERWISE UNREMARKABLE. Carl Luz MD DIAGNOSTIC IMAGING O RDERABLES * MRI BRAIN WITH & WITHOUT CONTRAST (01/23/2009 10:30 PM CDT) Anatomical Region Laterality Modality Head Magnetic Resonan ce 01/24/2009 8:21 AM CDT Impressions 01/24/2009 10:05 AM CDT UNREMARKABLE MRI OF BRAIN WITHOUT AND WITH IV CONTRAST. Narrative 01/24/2009 10:05 AM CDT INDICATION: Seizure, syncope. TECHNIQUE: Axial diffusion, axial dual-echo T2, axial and sagittal T1 and coronal FLAIR images of the brain are performed without IV contrast. Coronal dual-echo T2-weighted images performed as well. Postcontrast axial and coronal T1-weighted images are performed. The patient received 16 mL gadolinium Omniscan IV contrast. FINDINGS: There is normal cerebral volume. The temporal lobes are grossly symmetric. There is no extra-axial fluid collection. There is no mass effect or midline shift. On the postcontrast images, there is no abnormal contrast enhancement. Procedure Note Sherin Fields Brandan - 01/24/2009 INDICATION: Seizure, syncope. TECHNIQUE: Axial diffusion, axial dual-echo T2, axial and sagittal T1 and coronal FLAIR images of the brain are performed without IV contrast. Coronal dual-echo T2-weighted images performed as well. Postcontrast axial and coronal T1-weighted images are performed. The patient received 16 mL gadolinium Omniscan IV contrast. FINDINGS: There is normal cerebral volume. The temporal lobes are grossly symmetric. There is no extra-axial fluid collection. There is no mass effect or midline shift. On the postcontrast images, there is no abnormal contrast enhancement. IMPRESSION UNREMARKABLE MRI OF BRAIN WITHOUT AND WITH IV CONTRAST. Ortiz Slaughter MD MR ORDERABLES * TROPONIN I (01/23/2009 6:55 AM CDT) Only the most recent of3 resultswithin the time period is included. Troponin I <0.10 SEE BELOW ng/ml [facility] Comment: Normal ? <0.10 [place] Zone ??0.10-0.99 Positive ?? >=1.00 SERUM OR PLASMA SPECIMEN / Unknown 01/23/2009 6:55 AM CDT 01/23/2009 9:10 AM CDT Narrative [facility] - 01/23/2009 9:42 AM CDT Perform on patients greater than 35* Ronny Glover MD LAB - CHEMISTRY SRINIVASA LEVINE [facility] [address] [place] [address] * CT HEAD NON CONTRAST (01/22/2009 8:19 PM CDT) Anatomical Region Laterality Modality Head Computed Tomogra phy 01/22/2009 8:42 PM CDT Impressions 01/22/2009 8:47 PM CDT No acute intracranial process identified on unenhanced CT brain. This examination was transcribed using a computerized voice recognition system without human senior electrical designer. ??In an effort to expedite patient care, this report has not been adjusted for typographical, grammatical, and syntax errors by a trained medical certification specialist. ??I have reviewed the report for content on a urgent basis. I would be happy to review the films with you. Narrative 01/22/2009 8:[address] scan of the head without contrast Indication: New onset seizure, decreased level of consciousness, altered mental status, confusion Comparison: none Technique: 5 mm axial images were obtained from the foramen magnum to the vertex without administration of contrast. Findings: ??The ventricles and sulci are within normal limits. There is no intracranial hemorrhage, mass, or mass-effect. No abnormal intra- or extra-axial fluid collections are seen. There is no cortical infarction. The visualized paranasal sinuses are clear. The ??mastoid air cells appear clear. Procedure Note Ken Lee - 01/22/2009 CT scan of the head without contrast Indication: New onset seizure, decreased level of consciousness, altered mental status, confusion Comparison: none Technique: 5 mm axial images were obtained from the foramen magnum to the vertex without administration of contrast. Findings: The ventricles and sulci are within normal limits. There is no intracranial hemorrhage, mass, or mass-effect. No abnormal intra- or extra-axial fluid collections are seen. There is no cortical infarction. The visualized paranasal sinuses are clear. The mastoid air cells appear clear. IMPRESSION No acute intracranial process identified on unenhanced CT brain. This examination was transcribed using a computerized voice recognition system without human senior electrical designer. In an effort to expedite patient care, this report has not been adjusted for typographical, grammatical, and syntax errors by a trained medical certification specialist. I have reviewed the report for content on a urgent basis. I would be happy to review the films with you. Ortiz Slaughter MD CT ORDERABLES * D-DIMER (01/22/2009 7:50 PM CDT) D-Dimer .52 0.43 - 2.96 mg/L [facility] Comment D-Dimer [facility] Comment: Elevated results above the reference range may indicate DIC in the appropiate clinical setting. Serial evaluations may yield information reguarding the clinical course. If the result is greater than 1.0mg/L, DVT or PE is possible. D-Dimer is not recommended to rule out DVT/PE for patients who are on anticoagulant therapy since anticoagulant therapy may decrease circulating D-Dimer and could generate a false value below the negative predictive value. There are many causes of elevated D-Dimer not related to venous thromboembolism or DIC. A partial list of these includes , Trauma, Cancer, Post-Surgery, Diabetes, Hematoma, Thrombolytic therapy, Arterial thrombosis, Older age, Generalized hospitalized patient. BLOOD SPECIMEN / Unknown 01/22/2009 7:50 PM CDT 01/22/2009 8:12 PM CDT Ortiz Slaughter MD LAB - COAGULATION OR DERABLES [facility] [address] [place] [address] * URINALYSIS ROUTINE AUTO (01/22/2009 6:37 PM CDT) Color UA YELLOW [facility] Character UA CLOUDY [facility] Specific [place] UA 1.014 1.005 - 1.0300 [facility] pH UA 5.5 4.6 - 8.0 pH Units [facility] Leukocyte UA MODERATE Negative /ul [facility] Nitrite UA POSITIVE Negative [facility] Protein UA NEGATIVE Negative mg/dl [facility] Glucose UA NEGATIVE Normal mg/dl [facility] Ketone UA NEGATIVE Negative mg/dl [facility] Urobilinogen UA 0.2 Normal Bernie Units [facility] Bilirubin UA NEGATIVE Negative mg/dl [facility] Blood UA NEGATIVE Negative /ul [facility] WBC UA 50-100 /HPF [facility] RBC UA <5 /HPF [facility] Epithelial Cell UA <5 /HPF [facility] Casts UA <2 /LPF [facility] Bacteria UA MANY [facility] URINE SPECIMEN OBTAINED BY CLEAN CATCH PROCEDURE / Unknown 01/22/2009 6:37 PM CDT 01/22/2009 6:37 PM CDT Ronny Glover MD LAB - URINALYSIS ORD ERABLES Performing Organization Address [facility] Co de Phone Number [facility] [address] [place] [address] * HCG URINE QUALITATIVE - POINT OF CARE (01/22/2009 6:30 PM CDT) HCG Qual Urine negative Negative [facility] POCT TESTING QC Verified yes Yes [facility] POC T TESTING Urine specimen (specimen) URINE / Unknown 01/22/2009 6:30 PM CDT Ronny Glover MD LAB - POINT OF CARE ORDERABLES Performing Organization Address [facility] Co de Phone Number [facility] POCT TESTING [phone] [place] [address] * MYOGLOBIN BLOOD (01/22/2009 5:45 PM CDT) Myoglobin 5.1 0.0 - 110.0 ng/ml [facility] SERUM OR PLASMA SPECIMEN / Unknown 01/22/2009 5:45 PM CDT 01/22/2009 5:45 PM CDT Narrative [facility] - 01/22/2009 6:18 PM CDT Perform on patients greater than 35* Ronny Glover MD LAB - CHEMISTRY ORDE JULIANNA Performing Organization Address [facility] Co de Phone Number [facility] [address] [place] [address] * PTT (01/22/2009 5:45 PM CDT) Pathologist [facility] PTT 26.5 24.0 - 32.0 seconds [facility] BLOOD SPECIMEN / Unknown 01/22/2009 5:45 PM CDT 01/22/2009 5:45 PM CDT Narrative [facility] - 01/22/2009 5:57 PM CDT Perform for patients taking warfari* Ronny Glover MD LAB - COAGULATION OR DERABLES Performing Organization Address [facility] de Phone Number [facility] [address] [place] [address] * PT-INR (01/22/2009 5:45 PM CDT) Pathologist [facility] PT 10.9 9.4 - 11.2 seconds [facility] INR 1.0 SEE BELOW [facility] Comment: 0.9-1.1 Normal 2.0-3.0 Conventional 2.5-3.5 Intensive BLOOD SPECIMEN / Unknown 01/22/2009 5:45 PM CDT 01/22/2009 5:45 PM CDT Narrative [facility] - 01/22/2009 5:57 PM CDT Perform for patients taking warfari* Ronny Glover MD LAB - COAGULATION OR DERABLES Performing Organization Address [facility] de Phone Number [facility] [address] [place] [address] * CBC W AUTO DIFFERENTIAL (01/22/2009 5:45 PM CDT) WBC 4.5 4.5 - 11.0 1000/mm3 [facility] RBC 4.62 4.2 - 5.4 10X6 [facility] Hemoglobin 13.9 12.0 - 16.0 gm/dl [facility] Hematocrit 41.1 36.0 - 48.0 % [facility] MCV 89.0 80.0 - 99.0 fl [facility] MCH 30.1 25.0 - 31.0 pg [facility] MCHC 33.8 32.0 - 36.0 gm/dl [facility] RDW 13.2 11.5 - 14.5 % [facility] Platelet Count 230 130.0 - 400.0 1000/mm3 [facility] Granulocytes % 55.0 40.0 - 70.0 % [facility] Lymphocytes % 35.0 22.0 - 40.0 % [facility] Monocytes % 8.5 2.0 - 10.0 % [facility] Eosinophils % 1.1 0.0 - 6.0 % [facility] Basophils % 0.4 0.0 - 3.0 % [facility] Granulocytes Absolute 2.46 1.8 - 7.7 [facility] Lymphocytes Absolute 1.57 1.0 - 5.4 [facility] Monocytes Absolute 0.38 0.1 - 1.1 [facility] Eosinophils Absolute 0.05 0.0 - 0.7 [facility] Basophils Absolute 0.02 0.0 - 0.2 [facility] Comment Manual Diff Not Indicated [facility] BLOOD SPECIMEN / Unknown 01/22/2009 5:45 PM CDT 01/22/2009 5:45 PM CDT Narrative [facility] - 01/22/2009 5:49 PM CDT Perform for patients taking warfari* Ronny Glover MD LAB - HEMATOLOGY ORD ERABLES [facility] [address] [place] [address] * COMPREHENSIVE METABOLIC PANEL (01/22/2009 5:45 PM CDT) BUN 10 7.0 - 17.0 mg/dl [facility] Sodium 139 137 - 145 mmol/L [facility] Potassium 4.2 3.6 - 5.0 mmol/L [facility] Chloride 106 98.0 - 107.0 mmol/L [facility] Glucose 96 75 - 110 mg/dl [facility] Creatinine 0.9 0.7 - 1.2 mg/dl [facility] AST 32 14.0 - 36.0 U/L [facility] Alkaline Phosphatase 70 38.0 - 126.0 U/L [facility] Calcium 9.9 8.4 - 10.2 mg/dl [facility] Bilirubin Total 0.2 0.2 - 1.3 mg/dl [facility] Albumin 4.7 3.5 - 5.0 gm/dl [...] Glover MD LAB - CHEMISTRY SRINIVASA LEVINE [facility] [address] [place] [address] * XR CHEST 1VW PORTABLE (01/22/2009 2:40 PM CDT) Anatomical Region Laterality Modality Chest Radiographic Marah ging 01/22/2009 2:42 PM CDT Impressions 01/22/2009 2:55 PM CDT No acute pulmonary disease. Old right rib fractures Narrative 01/22/2009 2:55 PM CDT CHEST ONE VIEW PORTABLE INDICATION: Syncope and shortness of breath. FINDINGS: A frontal view of the chest, without prior, reveals the lung pimentel to be well expanded and clear. Heart size is normal. There are old right rib fractures at multiple levels. Procedure Note Jeff Figueroa MD - 01/22/2009 CHEST ONE VIEW PORTABLE INDICATION: Syncope and shortness of breath. FINDINGS: A frontal view of the chest, without prior, reveals the lung pimentel to be well expanded and clear. Heart size is normal. There are old right rib fractures at multiple levels. IMPRESSION No acute pulmonary disease. Old right rib fractures Ronny Glover MD DIAGNOSTIC IMAGING O RDERABLES Care Teams Mental Health Consultant Relationship Specialty Start Date End Date Alison Ngo, TABULATING CLERK-VOCAL MUSIC INSTRUCTOR [address] [place] [address] PCP - General Nurse Practitioner Family 10/3/21
--- OUTSIDE RECORDS SUMMARY | 2024-06-14 08:35 | XMS_ITS | Continuity of Care Document ---
Author Organization [facility] Address [address] [address] Phone Care Team Providers Care Cake Tester Name Role Phone Jaquan Acosta MD Unavailable Unavailable Medications Medication Instructions Dosage Effective Dates (start - stop) Status Comments tramadol 50 mg Tab take 1 - 2 (50MG) by Oral route 4 - 6 hours as needed 50 MG - Active Mobic 15 mg Tab take 1 tablet (15MG) by oral route every day - Active Procedures Procedure Date [facility] of [facility], complete 2010 [facility] X-[facility] exam of shoulder, complete 2006 Advance Directives Directive Yes / No Effective Date File Name No Information Encounters Encounter Description Practice Location Reason(s) For Visit Diagnoses Date Provider Providers Copied on Encounter [facility], [address] [place] [address], [id number], [place] tel:[phone] [facility] [address] Karla Partida[address] [place] [address], [place] [address], [place], [place], [id number] , [place]. tel: [phone] [facility], [address] [place] [address], [id number], tel:[phone] [facility] No Information 7 Karla Partida. [address] [facility], [address], [place], [place], [id number] , [place]. tel: [phone] [place]pat ient [place] [facility], [address], [place], [id number], [place] [phone] [facility] No Information Karla Partida. [address] [facility], [address], [place], [place], [id number] , [place]. tel: [phone] Family History Family Member Type Diagnosis Age At Onset No Information Payers Payer name Insurance type Covered democrat ID Pan salgado(s) [facility] CI [id number] Social History Type Description Quantity Date Captured Comments Sex Female Smoking Status No Information Chief Complaint And Reason For Visit No Information Reason For Referral Reason For Referral No Information History Of Present Illness Encounter Date Complaint History Of Prese nt Illness No Information Functional Status Date Functional Assessmen t No Information Instructions Date Instruction Additional Infor mation No Information Assessments Type Assessment Date No Information Patient Care Teams Name Effective Dates (start - stop) Status Members No Information
--- OUTSIDE RECORDS SUMMARY | 2024-06-14 08:35 | XMS_ITS | Clinical Summary ---
Author Organization [facility] Address [address] [place] [address] Care Team Providers Care Accounts Payable Bookkeeper Name Role Phone Alison Ngo CLINICAL MEDICAL TRANSCRIPTIONIST-HANDKERCHIEF FOLDER Primary Care Provider +1 Source Comments [facility],non-owned Affiliates and Associated Physician Practices is amultiple site organization consisting of ambulatory clinics and hospital sitesin [place], [place], [place] and [place]. This disclosure is being madepursuant to the Care Everywhere program and may not contain all information available regarding this patient. Last updated 18.[facility] Allergies No known active allergies Medications * [...] 02/09/2021 11:17 AM CDT Plan of Treatment Health Maintenance Due Date Last Done Comments COLOGUARD (AGES 45-75) - COL ON CA SCREENING 1966 COLON MONITORING 1966 COLONOSCOPY - COLON CA SCREENING 1966 CT COLONOGRAPHY - COLON CA SCREENING 1966 Colorectal Cancer Screening 1966 FIT - COLON CA SCREENING 1966 FLEX SIG - COLON CA SCREENING 1966 LIPID TESTING 1966 MAMMOGRAM 1966 PAP SMEAR 1966 HIV SCREENING 1981 HEPATITIS C SCREENING 03/24/1984 DTAP/TDAP/TD VACCINES (1 - Tdap) 1985 HEPATITIS B VACCINE (1 of 3 - 19+ 3-dose series) 1985 PNEUMOCOCCAL VACCINE 50+ (1 of 1 - PCV) 2016 ZOSTER VACCINE (1 of 2) 2016 SCREENING FOR DIABETES 02/09/2021 01/22/2009 COVID-19 VACCINE ( - 2023-2 5 season) 2024 INFLUENZA VACCINE (#1) 2024 DEPRESSION SCREENING 05/10/2024 HIB VACCINE Aged Out No longer eligi ble based on patient's age to complete this topic HPV VACCINE Aged Out No longer eligi ble based on patient's age to complete this topic MENINGOCOCCAL (Group B) VACCINE Aged Out No longer eligible based on patient's age to complete this topic MENINGOCOCCAL VACCINE Aged Out No tiffany prieto eligible based on patient's age to complete this topic PNEUMOCOCCAL VACCINE Aged Out No long er eligible based on patient's age to complete this topic Procedures Procedure Name Priority Date/Time Associated Diagnosis [...] Bilirubin Total 0.2 0.2 - 1.3 mg/dl [facility] Albumin 4.7 3.5 - 5.0 gm/dl [facility] Protein Total 8.2 6.3 - 8.2 gm/dl [facility] CO2 27 22.0 - 30.0 mEq/L [facility] ALT 15 9.0 - 52.0 U/L [facility] eGFR by MDRD 73.0 ml/min/1.7 3m2 [facility] BLOOD SPECIMEN / Unknown 01/22/2009 5:45 PM CDT 01/22/2009 5:45 PM CDT Narrative [facility] - 01/22/2009 6:08 PM CDT Perform for patients taking warfari* Ronny Glover MD LAB - CHEMISTRY ORDE RABLES [facility] [address] [place] [address] from Last 3 Months or Most Recently Relevant to Health Maintenance Advance Directives * Full Code (Latest Code Status on File) Date Activated Date Inactivated Comments 01/23/2009 12:53 AM 01/25/2009 8:54 AM Care Teams Accounts Payable Bookkeeper Relationship Specialty Start Date End Date Alison Ngo, CLINICAL MEDICAL TRANSCRIPTIONIST-HANDKERCHIEF FOLDER [address] [place] [address] PCP - General Nurse Practitioner Family 02/09/21
== END 2024-06-14 08:28 | disposition home or self-care (01) ==
LOC: ANHIMG 08:27
PROVIDERS: PCP Internal Medicine; Visit Provider Internal Medicine
DX: Z12.31 Encounter for screening mammogram for malignant neoplasm of breast (principal)
CPT/HCPCS: 77063; 77067

== ENCOUNTER 2025-01-09 18:35 | Emergency (ER) | payer BC, SELFPAY ==
[2025-01-09 18:44] VITALS: BP 149/88; PULSE 82; RESP 16; TEMP 36.4; O2SAT 99
--- NOTE | 2025-01-09 19:04 | ED.SKABFB ---
HPI - Skin/Abscess/Foreign Bdy General Chief complaint: Skin/Abscess/Foreign Body Stated complaint: Insect Bite Time Seen by Provider: 01/09/25 19:04 Source: patient Mode of arrival: ambulatory Limitations: no limitations History of Present Illness HPI narrative: 59-year-old female presented for complaint of a reddened area of surrounding wasp sting to the left calf. She was stung 5 days ago. Endorses mild swelling extending to the ankle and some itching. she has used benadryl cream and taking benadryl Related Data Home Medications ?Medication ?Instructions ?Recorded ?Confirmed ?Last Taken ?Type bupropion HCl 300 mg 24 hr tablet, 300 mg PO DIRECTED 02/08/23 07/15/23 Unknown History extended release buspirone 30 mg tablet 30 mg DIRECTED 02/08/23 07/15/23 Unknown History dextroamphetamine-amphetamine 30 30 mg DIRECTED 02/08/23 07/15/23 Unknown History mg tablet amlodipine 2.5 mg tablet mg 01/09/25 Unknown History dextromethorphan IR 45 PO 01/09/25 Unknown History mg-bupropion ER 105 mg biphasic tablet (Auvelity) ergocalciferol (vitamin D2) 1,250 01/09/25 Unknown History mcg (50,000 unit) capsule metformin 500 mg tablet,extended mg PO 01/09/25 Unknown History release 24 hr rosuvastatin 10 mg tablet mg 01/09/25 Unknown History Allergies Allergy/AdvReac Type Severity Reaction Status Date / Time No Known Allergies Allergy Verified 07/15/23 09:49 Review of Systems Review of Systems: CONSTITUTIONAL: Denies body aches, fever, chills, or sweats. EYES: Denies visual changes, redness, or discharge. ENT: Denies rhinorrhea, congestion CARDIOVASCULAR: Denies chest pain, palpitations, or edema. RESPIRATORY: Denies cough or dyspnea. GASTROINTESTINAL: Denies abdominal pain, nausea, vomiting, or diarrhea. SKIN: reports redness to left calf MUSCULOSKELETAL: Denies joint pain, or myalgia. NEUROLOGIC: Denies headache, numbness, tingling, or weakness. [facility] Surgical History Surgical History History of shoulder surgery Right History of surgical procedure on eye proper using laser Social History Social History Smoking status: Never smoker Alcohol intake: current Substance use type: marijuana Living arrangements: with family Gender identity (if verbalized by the patient): Female Comments At time of signature, I have reviewed and agree with nursing past medical, surgical, social and family history unless otherwise noted. Please see nursing chart for further information. There is no relevant family history pertinent to the presenting complaint Exam Narrative: GENERAL: Well-appearing HEAD: Normocephalic, atraumatic. EYES: conjunctivae clear, and EOMI. ENT: Mucous membranes moist. Oropharynx without edema, erythema or lesions. NECK: Supple. No lymphadenopathy CHEST: Clear to auscultation. HEART: Regular rate and rhythm. SKIN: Warm, dry. left posterior calf with 7 cm area of flat light erythema, no warmth, tenderness, fluctuance or active drainage. No apparent cellulitis. NEURO: Alert and oriented x3. Course Course Emergency Course: Patient is aware of diagnosis, understands and agrees to treatment plan. Anticipatory guidance given. Patient agrees to follow-up as directed and is aware of reasons to seek care at the emergency department. Portions of this record may have been created with voice recognition software Level of Care: Express Care Visit Vital Signs Vital signs: Vital Signs Temperature 97.6 F 01/09/25 18:44 Pulse Rate 82 01/09/25 18:44 Respiratory Rate 16 01/09/25 18:44 Blood Pressure 149/88 H 01/09/25 18:44 Pulse Oximetry 99 01/09/25 18:44 Oxygen Delivery Room Air 01/09/25 18:44 Temperature 97.6 F 01/09/25 18:44 Pulse Rate 82 01/09/25 18:44 Respiratory Rate 16 01/09/25 18:44 Blood Pressure 149/88 H 01/09/25 18:44 Pulse Oximetry 99 01/09/25 18:44 Oxygen Delivery Room Air 01/09/25 18:44 Reviewed MDM - Skin/Abscess/Foreign Bdy MDM Narrative Medical decision making narrative: Discussed physical exam findings most c/w with expected reaction to wasp sting. No apparent cellulitis. Rx steroid. Advised supportive measures and signs/symptoms to go to the ER. Pt is appropriate for outpt treatment and f/u. Differential Diagnosis Differential diagnosis: Likely abscess of skin or subcutaneous tissue, viral exanthem, dermatophytosis, urticaria, herpes zoster, cellulitis, eczema, insect bites, impetigo and contact dermatitis Discharge Plan Discharge Clinical Impression: Accidental insect sting Patient Disposition: Home Condition: Stable Instructions: Antibiotic Form, Insect Bite or Sting (ED) Additional Instructions: Take steroids as directed. Zyrtec as needed for itching Cool compresses to the sites of itching, avoid hot water. Avoid scratching to reduce the risk of infection keep the leg elevated to reduce swelling Follow up with your primary care provider as needed in 1 week Go to the ER for worsening symptoms or concerns (lip, tongue, throat swelling/itching, trouble breathing etc) Patient Language: Egyptian Prescriptions: New prednisone 20 mg tablet 40 mg PO DAILY 4 Days Qty: 8 0RF No Action dextroamphetamine-amphetamine 30 mg tablet 30 mg DIRECTED buspirone 30 mg tablet 30 mg DIRECTED bupropion HCl 300 mg tablet extended release 24 hr 300 mg PO DIRECTED amlodipine 2.5 mg tablet ergocalciferol (vitamin D2) 1,250 mcg (50,000 unit) capsule metformin 500 mg tablet extended release 24 hr PO rosuvastatin 10 mg tablet Auvelity 45-105 mg tablet, IR and ER, biphasic PO methocarbamol 750 mg tablet 750 mg PO TID Qty: 30 0RF Follow-up/Referrals: Joanna,MD Jose Armando [Primary Care Provider] Time of Disposition: 19:09
== END 2025-01-09 19:15 | disposition home or self-care (01) ==
PROVIDERS: Emergency Provider Nurse Practitioner Family; PCP Internal Medicine
DX: T63.461A Toxic effect of venom of wasps, accidental (unintentional), initial encounter (principal); F12.90 Cannabis use, unspecified, uncomplicated
CPT/HCPCS: 99213; G0463

== ENCOUNTER 2025-05-07 09:24 | Outpatient (CLI) | payer BC, SELFPAY ==
--- NOTE | ~2025-05-07 | DEXA_ITS ---
Bone Density Report Name: YUNIER PAZ Age: 60 Sex: Female Ethnicity: White Date of : 1965 Indication: postmenopausal; screening for osteoporosis; height loss; Referring Provider: LAURE, PERRY Long Study: Bone densitometry was performed. Exam Date: May 07, 2025 Accession number: [id number] Bone Density: Region BMD T-score Z-score Classification AP Spine(L1, L3, L4) 0.914 -1.3 0.1 Osteopenia Femoral Neck (Left) 0.734 -1.0 0.2 Normal Total Hip (Left) 0.891 -0.4 0.5 Normal Femoral Neck (Right) 0.799 -0.4 0.8 Normal Total Hip (Right) 0.945 0.0 0.9 Normal Total Hip Mean 0.918 -0.2 0.7 Normal World Health Organization criteria for BMD impression classify patients as: Normal (T-score at or above -1.0), Osteopenia (T-score between -1.0 and -2.5), or Osteoporosis (T-score at or below -2.5). 10-year Fracture Risk(1): Major Osteoporotic Fracture 6.0% Hip Fracture 0.3% Reported Risk Factors: [place] (), Neck BMD=0.734, BMI=41.1 (1) FRAX(R) Version 3.08. Fracture probability calculated for an untreated patient. Fracture probability may be lower if the patient has received treatment. Clinical Information Provided by Patient: Has used the following medications: Vitamin D, Calcium Patient maximum height was 69.0 Menopause Age: 45 Drinks caffeinated beverages Onset of menses at age 15 Number of children 4 Impression: The patient has low bone mass, based on the Total Spine T-score. The patient has an estimated ten-year risk of hip fracture of 0.3% and an estimated ten-year risk of major fracture of 6%, based on the WHO FRAX algorithm. Discussion: BONE DENSITY IS LOW AT ONE OR MORE SKELETAL SITES. This patient's lowest T-score is low at one or more skeletal sites. It meets the World Health Organization's (WHO) criteria for ?low bone mass? (T-score between -1.0 and -2.5). The patient's 10-year risk of fracture as calculated by FRAX is less than the threshold where pharmacological therapy is recommended by the National Osteoporosis Foundation (NOF). However, all treatment decisions require clinical judgment and consideration of individual patient factors, including patient preferences, comorbidities, previous drug use, risk factors not captured in the FRAX model (e.g., frailty, falls, vitamin D deficiency, increased bone turnover, interval significant decline in bone density) and possible under or overestimation of fracture risk by FRAX. The patient should follow a healthful lifestyle (good nutrition with adequate calcium and vitamin D, and appropriate weight-bearing exercise). Follow-Up: Consider repeating this study in 2 to 3 years to reassess this patient's status, or sooner if there is some new clinical indication. Reported by: NADEEM on 05/09/2025 7:58:00 AM. Reviewed, dictated and finalized at location A.
--- OUTSIDE RECORDS SUMMARY | 2025-05-07 09:45 | XMS_ITS | Clinical Summary ---
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 Gender Identity Not on file Sexual Orientation Not on file Plan of Treatment Health Maintenance Due Date Last Done Comments Hepatitis C Virus (HCV) Screening 1966 Hepatitis B Immunization (1 of 3 - 19+ 3-dose series) 1985 Pap Smear 1987 Cervical Cancer Screening (CCS) 1996 HPV/Cotest 1996 Cologuard 2011 Colonoscopy 2011 Colorectal Cancer Screening 2011 Immunochemical Fecal Occult Blood 2011 Pneumococcal Immunization (5 0+ years) (1 of 1 - PCV) 2016 Zoster Immunization (1 of 2) 2016 Influenza Immunization (#1) 2025 SARS-COV-2 Immunization ( season) 2025 Respiratory Syncytial Virus (RSV) Immunization (Adult) (1 - 1-dose 75+ series) 2041 DTaP/Tdap/Td Immunization Discontinued 04/25/2019 TdaP Immunization Completed 04/25/2019 Human Papillomavirus (HPV) Immunization Aged Out No longer eligible b ased on patient's age to complete this topic Meningococcal Immunization (ACWY) Aged Out No longer eligible based on patient's age to complete this topic Rotavirus Immunization Aged Out No lo nger eligible based on patient's age to complete this topic
--- OUTSIDE RECORDS SUMMARY | 2025-05-07 09:45 | XMS_ITS | Clinical Summary ---
Author Organization [facility] Address [address] [place] [address] Care Team Providers Care Metal Mixer Name Role Phone Unavailable Primary Care Provider Unavailabl e Allergies No known active allergies Medications amphetamine-dex troamphetamine 30 MG tablet 04/19/2019 Active buPROPion XL 150 MG 24 hr tablet 04/21/2019 Active diazepam 5 MG tablet 04/21/2019 Active vitamin D2, ergocalciferol, 04511 UNITS capsuleIndicati ons:Vitamin D deficiency Take 1 capsule (50,000 Units total) by mouth weekly. 12 capsule 3 04/26/2019 Active Active Problems Problem Noted Date Diagnosed Date Hemorrhoids with prolapsed t issue that cannot be manually replaced 03/22/2012 Immunizations Immunization Administration Dates Next Due Tdap (Historical Only-select from magnify glass) 04/25/2019 Family History Medical History Relation Comments Diabetes Father Heart Disease Father Breast Cancer Maternal Aunt Breast Cancer Mother Cancer Mother Diabetes Paternal Grandmother Relation Status Comments Father Maternal Aunt Mother Paternal Grandmother Social History Tobacco Use Types Packs/Day Years [...] Sign Reading Time Taken Comments Blood Pressure 110/72 04/25/2019 4:58 PM TITLE AGENT Pulse 70 04/25/2019 4:58 PM TITLE AGENT Temperature - - Respiratory Rate - - Oxygen Saturation 97% 04/25/2019 4:58 PM TITLE AGENT Inhaled Oxygen Concentration - - Weight 111.1 kg (245 lb) 04/25/2019 4:58 PM TITLE AGENT Height 176.5 cm (5' 9.5) 04/25/2019 4:58 PM TITLE AGENT Body Mass Index 35.66 04/25/2019 4:58 PM TITLE AGENT Plan of Treatment Health Maintenance Due Date Last Done Comments Cervical Cancer Screening Pa p Smear (Age 30 to 64) Every 3 Years 1966 Colorectal Cancer Screening Colonoscopy (10 Years) 1966 Annual Physical 1969 Hepatitis C 1984 Cervical Cancer Screening Pa p with HPV Testing (Age 30 to 64) Every 5 Years 1996 Cervical Cancer Screening with HPV 1996 Pneumococcal Vaccine: 50+ Ye ars (1 of 1 - PCV) 2016 Zoster Vaccines (1 of 2) 2016 Mammogram Screening 05/22/2021 05/22/2019 PHQ-2 (Physician [place]) 05/10/2024 COVID-19 Vaccine (1 - 2024-2 6 season) 2025 Influenza Adult (#1) 2025 DTaP, Tdap and Td Vaccines ( 2 - Td or Tdap) 04/25/2029 04/25/2019 Hepatitis A Vaccines Aged Out No long er eligible based on patient's age to complete this topic Meningococcal B Vaccine Aged Out No l onger eligible based on patient's age to complete this topic Meningococcal Vaccine Aged Out No tiffany prieto eligible based on patient's age to complete this topic RSV Immunizations Under 20 Months Aged Out No longer eligible based on patient's age to complete this topic Procedures Procedure Name Priority Date/Time Associated Diagnosis Comments MG SCREENING W MARIA L ILA DIGI Routine 05/22/2019 2:15 PM TITLE AGENT Screening mammogram, encounter for from Last 3 Months or Most Recently Relevant to Health Maintenance Results * MG SCREENING W MARIA L ILA DIGI (05/22/2019 2:15 PM TITLE AGENT) Anatomical Region Laterality Modality Breast Bilateral Mammography 05/25/2019 2:30 PM TITLE AGENT Impressions 05/25/2019 2:32 PM TITLE AGENT ===== IMPRESSION: ===== 1. Stable mammographic appearance with no new findings to suggest malignancy in either breast. Assessment: ACR BI-RADS Category 1 - Negative. Recommendation: 1: Routine screening mammogram bilateral in 1 year Comments: Narrative 05/25/2019 2:32 PM TITLE AGENT Examination: Digital bilateral screening mammogram with 3D Tomosynthesis Exam Date/Time: 05/22/2019 1:53 PM Reason For Exam: routine No prior breast procedures. No personal history of breast cancer. Breast cancer in mother at age 75. No current complaints. Comparison: 05/31/2017 screening mammogram Technique: Digital screening mammography of both breasts was performed in addition to 3-D Tomosynthesis technique. This study was read with the assistance of a computer-aided detection system. Tissue density: The breast tissue is heterogeneously dense. Findings: Overall parenchymal pattern stable from the prior study. There is no new focal asymmetry, dominant mass lesion, area of skin thickening, or cluster of suspicious appearing calcifications in either breast to suggest malignancy. Alison Ngo NP MAMMO Final Result from Last 3 Months or Most Recently Relevant to Health Maintenance Insurance [employer] GENERIC - COMMERCIAL Member Subscriber Plan / Payer (Ef fective 2019-Present) Name:Bela Emery Relation to Subscriber:Self Name:Bela Emery Payer ID:Not on file Type:Not on file Address: [place] [id number]
--- OUTSIDE RECORDS SUMMARY | 2025-05-07 09:45 | XMS_ITS | Patient Health Record ---
Author Organization [facility] Address [address] [facility] [address] [place] [address] Care Team Providers Care Development Administrator Name Role Phone Keshawn Rodriguez Unavailable [phone] Reason For Referral No Information Medications Medication SIG (Take, Route, Frequency, Duration) Notes Start Date End Date Status Methocarbamol 750 MG Tablet Oral Active buPROPion HCl ER (XL) 300 MG Tablet Extended Release 24 Hour Oral Active Doxycycline Monohydrate 100 MG Tablet Oral Active OptiChamber [place] SPACER (EA) MISCELLANEOUS Active SUMAtriptan Succinate 50 MG Tablet Oral Active ProAir HFA 108 (90 Base) MCG/ACT Aerosol Solution Inhalation Act aaron Acetaminophen Extra Strength 500 MG Tablet Oral Activ e 12 Hour Decongestant 120 mg Tablet Extended Release 12 Hour Oral Active Amphetamine-Dextroamphetam ine 30 MG Tablet Oral Active diazePAM 5 MG Tablet Oral Active Ibuprofen 600 MG Tablet Oral Active Triamcinolone Acetonide 0.1% Cream External Active busPIRone HCl 30 MG Tablet Oral Active HYDROcodone-Acetaminophen 5-325 MG Tablet Oral Active predniSONE 20 MG Tablet Oral Active Social History Social History Additional Details Category Social Info Options Details Migrated Social History Migrated Social History Tobacco Years: Never smoker 09/01/2023 Plan Of Treatment No Information Insurance Providers Payer Name Payer Address Payer Phone Subscriber Number Group Number Insured Name Patient Relationship to Insured Coverage Start Date Coverage End Date [facility] [address] [place] [address] [id number] YUNIER PAZ Self - patient is the insured
--- OUTSIDE RECORDS SUMMARY | 2025-05-07 09:45 | XMS_ITS | Clinical Summary ---
Author Organization [facility] Address [address] [place] [address] Care Team Providers Care Furniture Reproducer Name Role Phone Alison Ngo HSE ADVISOR-NURSE OBGYN Primary Care Provider +1 Source Comments [facility] Affiliates and Associated Physician Practices is amultiple site organization consisting of ambulatory clinics and hospital sitesin [place], [place], [place] and [place]. This disclosure is being madepursuant to the Care Everywhere program and may not contain all information available regarding this patient. Last updated 18.[facility] Allergies No known active allergies Medications * Be aware that medications may not be up to date on this document. Alwaysverify current medications with the patient. buPROPion XL 24hr (WELLBUTRIN-XL) 300 MG tablet Take 300 mg by mouth every morning. Active amphetamine-dext roamphetamine XR 24hr (ADDERALL XR) 15 MG capsule Take 15 mg by mouth once daily Active busPIRone (BUSPAR) 15 MG tablet Take 15 mg by mouth once daily Active albuterol HFA (PROAIR HFA) 108 (90 Base) MCG/ACT inhalerIndicatio ns:Acute bronchitis, unspecified organism Inhale 2 (two) puffs by mouth every 4 hours as needed 18 g 1 Active methylPREDNISolo ne (MEDROL DOSEPAK) 4 MG tabletIndication s:Acute bronchitis, unspecified organism Take by mouth as directed Take as directed by mouth per package instructions. 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 Gender Identity Not on file Sexual Orientation Not on file Last Filed Vital Signs Vital Sign Reading Time Taken Comments Blood Pressure 120/80 02/09/2021 11:17 AM CDT Pulse 91 02/09/2021 11:17 AM CDT Temperature 36.8 C (98.3 F) 02/09/2021 11:17 AM CDT Respiratory Rate 16 02/09/2021 11:17 AM CDT Oxygen Saturation 98% 02/09/2021 11:17 AM CDT Inhaled Oxygen Concentration - - Weight 90.7 kg (200 lb) 02/09/2021 11:17 AM CDT Height 175.3 cm (5' 9) 02/09/2021 11:17 AM CDT Body Mass Index [...] SCREENING 1966 LIPID TESTING 1966 MAMMOGRAM 1966 HIV SCREENING 1981 HEPATITIS C SCREENING 03/24/1984 DTAP/TDAP/TD VACCINES (1 - Tdap) 1985 HEPATITIS B VACCINE (1 of 3 - 19+ 3-dose series) 1985 PNEUMOCOCCAL VACCINE 50+ (1 of 1 - PCV) 2016 ZOSTER VACCINE (1 of 2) 2016 SCREENING FOR DIABETES 02/09/2021 01/22/2009 DEPRESSION SCREENING 05/10/2024 COVID-19 VACCINE (1 - 2024-2 6 season) 2025 INFLUENZA VACCINE (#1) 2025 HIB VACCINE Aged Out No longer eligi ble based on patient's age to complete this topic HPV VACCINE Aged Out No longer eligi ble based on patient's age to complete this topic MENINGOCOCCAL (Group B) VACC INE SHARED DECISION-MAKING Aged Out No longer eligibl e based on patient's age to complete this topic MENINGOCOCCAL GROUPS A/C/Y/W VACCINE Aged Out No longer eligible b ased [...] Protein Total 8.2 6.3 - 8.2 gm/dl [facility] CO2 27 22.0 - 30.0 mEq/L [facility] ALT 15 9.0 - 52.0 U/L [facility] eGFR by MDRD 73.0 ml/min/1.7 3m2 [facility] BLOOD SPECIMEN / Unknown 01/22/2009 5:45 PM CDT 01/22/2009 5:45 PM CDT Narrative [facility] - 01/22/2009 6:08 PM CDT Perform for patients taking warfari* us Ronny F Glover MD LAB - CHEMISTRY ORDERABLES F inal Result [facility] [address] [place] [address] from Last 3 Months or Most Recently Relevant to Health Maintenance Insurance [employer] [facility] Advance Directives * Full Code (Latest Code Status on File) Date Activated Date Inactivated Comments 01/23/2009 12:53 AM 01/25/2009 8:54 AM Care Teams Furniture Reproducer Relationship Specialty Start Date End Date Alison Ngo, HSE ADVISOR-NURSE OBGYN [address] [place] [address] PCP - General Nurse Practitioner Family 02/09/21
--- OUTSIDE RECORDS SUMMARY | 2025-05-07 09:45 | XMS_ITS | Encounter Summary ---
Author Organization [facility] Address [address] [place] [address] Care Team Providers Care Fruit Ii Farmworker Name Role Phone Alison Ngo SEAMER OPERATOR Primary Care Provider [phone] Encounter Details Date Type Department Care Team ([facility] st Contact Info) Description 04/06/2022 [employer] Message Spot formerly [employer] [facility] Family and Sports Medicine - [place] [address] [place] [address] [facility] Provider Schedule Appointment: Annual Physical Due Social [...] Depression Total Score: 17 019 5:40 PM X RAY DEVELOPER documented as of this encounter Care Teams Fruit Ii Farmworker Relationship Specialty Start Date End Date Alison Ngo, SEAMER OPERATOR [address] [place] [address] 415- PCP - General Nurse Practitioner Family 04/05/1902/07/25 documented as of this encounter
== END 2025-05-07 09:25 | disposition home or self-care (01) ==
LOC: ANHFOHIMG 09:26
PROVIDERS: PCP Internal Medicine
DX: Z13.820 Encounter for screening for osteoporosis (principal); Z78.0 Asymptomatic menopausal state; M85.88 Other specified disorders of bone density and structure, other site
CPT/HCPCS: 77080